=== PATIENT | female | born 1945 | race Caucasian/White ===

== ENCOUNTER 2019-12-27 13:45 | Outpatient (CLI) | payer MEDICARE, SELFPAY ==
--- NOTE | ~2019-12-27 | DEXA_ITS ---
BMD(1) Young-Adult(2) Age-Matched(3) Region (g/cm2) T-score Z-score WHO Classification L1 1.352 1.7 3.2 Normal L2 1.626 3.4 4.9 Normal L3 1.392 1.4 2.8 Normal L4 1.253 0.3 1.7 Normal L1-L4 (L2) 1.328 1.1 2.6 Normal Trend: L1-L4 (L2) Change vs Change vs Measured Age BMD(1) Baseline Previous Date (years) (g/cm2) (%) (%) 12/27/2019 74.4 1.328 22.6* 11.1* 11/24/2017 [age] 1.195 10.3* -1.9 07/29/2011 66.0 1.218 12.5* 8.4* 07/27/2009 64.0 1.124 3.8* 3.8* 07/23/2007 62.0 1.083 baseline - * - Indicates significant change based on 95% confidence interval. 1 - Statistically 68% of repeat scans fall within 1SD (+- 0.010 g/cm2 for AP Spine L1-L4 (L2)) 2 - [place] (Combined NHANES (ages 20-30) / Memorop (ages 20-40)) AP Spine Reference Population (v112) 3 - Matched for Age, Weight (females 25-100 kg), Ethnic 11 - World Health Organization - Definition of Osteoporosis and Osteopenia for Women: Normal = T-score at or above -1.0 SD; Osteopenia = T-score between -1.0 and -2.5 SD; Osteoporosis = T-score at or below -2.5 SD; (WHO definitions only apply when a young healthy Women reference database is used to determine T-scores.) Printed: 12/27/2019 2:26:44 PM (13.60)76:3.00:50.00:12.0 0.00:10.32 0.60x1.05 23.6:%Fat=40.0% 0.00:0.00 0.00:0.00 Filename: [id number] Scan Mode: Standard;OneScan 37.0 [place] [id number] BMD(1) Young-Adult(2,7) Age-Matched(3) Region (g/cm2) T-score Z-score WHO Classification Neck Left 0.761 -2.0 -0.4 Osteopenia Right 1.002 -0.3 1.4 Normal Mean 0.881 -1.1 0.5 Osteopenia Difference 0.241 1.7 1.7 - Total Left 0.863 -1.1 0.3 Osteopenia Right 0.968 -0.3 1.1 Normal Mean 0.915 -0.7 0.7 Normal Difference 0.104 0.8 0.8 - Hip [place] Length Comparison (mm) (Right = 103.7 mm) (Mean = 105.5 mm) (Left = 101.3 mm) Trend: Total Mean Change vs Change vs Measured Age BMD(1) Baseline Previous Date (years) (g/cm2) (%) (%) 12/27/2019 74.4 0.915 3.5* 5.2* 08/29/2014 69.1 0.870 -1.6 -2.4 07/29/2011 66.0 0.891 0.8 1.0 07/27/2009 64.0 0.882 -0.2 -0.2 07/23/2007 62.0 0.884 baseline - * - Indicates significant change based on 95% confidence interval. 1 - Statistically 68% of repeat scans fall within 1SD (+- 0.010 g/cm2 for DualFemur Total) 2 - [place] (Combined NHANES (ages 20-30) / Memorop (ages 20-40)) Femur Reference Population (v112) 3 - Matched for Age, Weight (females 25-100 kg), Ethnic 7 - DualFemur Total T-score difference is 0.8. Asymmetry is Mild. 11 - World Health Organization - Definition of Osteoporosis and Osteopenia for Women: Normal = T-score at or above -1.0 SD; Osteopenia = T-score between -1.0 and -2.5 SD; Osteoporosis = T-score at or below -2.5 SD; (WHO definitions only apply when a young healthy Women reference database is used to determine T-scores.) Printed: 12/27/2019 2:26:44 PM (13.60); Filename: [id number]; Right Femur; 18.6:%Fat=35.4%; Neck Angle (deg)= 57; Scan Mode: Standard 37.0 uGy; Left Femur; 18.5:%Fat=30.7%; Neck Angle (deg)= 59; Scan Mode: Standard 37.0 uGy [place] [id number] Dear Vicky Marques, Your patient Kandace Scott com
== END 2019-12-27 13:46 | disposition home or self-care (01) ==
LOC: CHSIMG 13:47
PROVIDERS: PCP Internal Medicine; Visit Provider Student in an Organized Health Care Education/Training Program
DX: Z78.0 Asymptomatic menopausal state (principal)
CPT/HCPCS: 77080

== ENCOUNTER 2020-07-20 09:58 | Outpatient (CLI) | payer MEDICARE, SELFPAY ==
--- NOTE | ~2020-07-20 | MM_ITS ---
EXAMINATION: MM screening ricki BI w bakari HISTORY: Screening mammogram TECHNIQUE: Craniocaudal and mediolateral oblique 3-D tomosynthesis images were obtained and synthetic 2-D images were generated. CAD analysis was submitted and interpreted. COMPARISON: 07/16/2019, 07/11/2018, 06/20/2017, 06/17/2016 bilateral digital screening mammogram examinat ions BREAST PARENCHYMAL COMPOSITION: There are scattered areas of fibroglandular density. FINDINGS: There is stable mild increased prominence of the fibroglandular density in the subareolar a shikha compared to the left, not significantly changed since 06/17/2016. There is no evidence of suspicio us mass, calcification, or architectural distortion to suggest malignancy in either breast. There has been no suspicious interval change. IMPRESSION: 1. No mammographic evidence of malignancy. 2. Recommend routine screening mammography in one year. BI-RADS Category 1: Negative Reviewed, dictated and finalized at location A.
== END 2020-07-20 09:59 | disposition home or self-care (01) ==
LOC: CHSIMG 09:59
PROVIDERS: PCP Internal Medicine; Visit Provider Student in an Organized Health Care Education/Training Program
DX: Z12.31 Encounter for screening mammogram for malignant neoplasm of breast (principal)
CPT/HCPCS: 77063; 77067

== ENCOUNTER 2020-10-10 10:18 | Outpatient (CLI) | payer MEDICARE, SELFPAY ==
[2020-10-10 10:45] LABS: Basophils Absolute Auto 0.02 K/mm3 (0.00-0.10); Basophils Percent Auto 0.4 % (0.0-1.0); Eosinophils Absolute Auto 0.15 K/mm3 (0.02-0.50); Eosinophils Percent Auto 3.2 % (1.0-6.0); Hemoglobin 13.5 g/dL (11.7-13.8); Immature Granulocyte Absolute 0.02 K/mm3 (0.00-0.00); Immature Granulocyte Percent A 0.4 % (0.0-0.0); Lymphocytes Absolute Auto 1.45 K/mm3 (1.10-4.50); Lymphocytes Percent Auto 30.8 % (18.0-42.0); Mean Corpuscular HGB Conc 32.1 g/dL (32.0-36.0); Mean Corpuscular Hemoglobin 31.5 pg (27.0-31.0); Mean Corpuscular Volume 97.9 fL (78.0-102.0); Mean Platelet Volume 9.9 fl (9.2-11.8); Monocytes Absolute Auto 0.45 K/mm3 (0.10-0.90); Monocytes Percent Auto 9.6 % (2.0-11.0); Neutrophils Absolute Auto 2.6 K/mm3 (1.7-7.2); Neutrophils Percent Auto 55.6 % (50.0-70.0); Platelet Count Result 223 K/mm3 (150-420); Red Blood Count 4.29 M/mm3 (4.20-5.40); Red Cell Distribution Width 12.3 % (11.6-14.4); White Blood Count 4.7 K/mm3 (4.8-10.8)
[2020-10-10 11:33] LABS: Alanine Aminotransferase 21 U/L (14-59); Albumin Level 3.8 g/dL (3.4-5.0); Alkaline Phosphatase 110 U/L (46-116); Anion Gap 11 mmol/L (8-16); Aspartate Amino Transferase 18 U/L (15-37); Bilirubin,Total 0.2 mg/dL (0.00-1.00); Blood Urea Nitrogen 19 mg/dL (7-18); Calcium 9.2 mg/dL (8.5-10.1); Carbon Dioxide 27 mmol/L (21-32); Chloride 105 mmol/L (98-108); Cholesterol 192 mg/dL (0-200); Estimated Glomerular Filt Rate 50; Glucose 105 mg/dL (70-99); HDL Direct 61 mg/dL (40-60); LDL Cholesterol Calculated 105 mg/dL (<130); Osmolality Calculated 298 mOsm/kg (285-295); Potassium 4.3 mmol/L (3.5-5.1); Sodium 143 mmol/L (136-145); Thyroid Stimulating Hormone 1.73 uIU/mL (0.36-3.74); Total Protein 6.9 g/dL (6.4-8.2); Triglycerides 131 mg/dL (0-150)
[2020-10-10 11:34] LABS: Add Urine Microscopic? NO; Appearance Urine Clear (Clear); Bilirubin Urine Negative (Negative); Blood Urine Negative (Negative); Color Urine Yellow (Yellow); Glucose Urine UA Negative (Negative); Ketones Urine Negative (Negative); Leukocyte Esterase Ur Negative (Negative); Nitrate Urine Negative (Negative); Protein Urine Negative (Negative); Specific Grav Ur 1.025 (1.010-1.020); Urobilinogen Urine 0.2 mg/dL (0.2-1.0); pH Urine 5.5 (5.0-8.0)
== END 2020-10-10 10:19 | disposition home or self-care (01) ==
LOC: CHSLAB 10:21
PROVIDERS: PCP Internal Medicine; Visit Provider Internal Medicine
DX: E03.9 Hypothyroidism, unspecified (principal); Z00.00 Encounter for general adult medical examination without abnormal findings
CPT/HCPCS: 36415; 80053; 80061; 81003; 84443; 85025

== ENCOUNTER 2020-10-19 11:17 | Outpatient (CLI) | payer MEDICARE, SELFPAY ==
[2020-10-19 12:02] LABS: SARS-CoV-2 Ag Negative (Negative)
== END 2020-10-19 11:18 | disposition home or self-care (01) ==
PROVIDERS: PCP Internal Medicine; Visit Provider Internal Medicine
DX: Z20.828 Contact with and (suspected) exposure to other viral communicable diseases (principal)
CPT/HCPCS: 87426

== ENCOUNTER 2020-10-26 11:08 | Outpatient (CLI) | payer MEDICARE, SELFPAY ==
[2020-10-26 11:52] LABS: SARS-CoV-2 Ag Positive (Negative)
== END 2020-10-26 11:09 | disposition home or self-care (01) ==
LOC: CHSLAB 11:11
PROVIDERS: PCP Internal Medicine; Visit Provider Internal Medicine
DX: U07.1 COVID-19 (principal)
CPT/HCPCS: 87426

== ENCOUNTER 2020-10-29 11:18 | Emergency (ER) | payer MEDICARE, SELFPAY ==
--- NOTE | ~2020-10-29 | XR_ITS ---
EXAMINATION: XR chest 1V portable DATE: 10/29/2020 12:30 INDICATION: COVID positive presenting with cough and weakness TECHNIQUE: frontal view of the chest was obtained. COMPARISON: Chest radiograph dated 12/19/2006 FINDINGS: The lungs are not as well-expanded as on the prior study. No focal airspace opacities, pulmonary ignacia a, pleural effusion or pneumothorax. The cardiomediastinal silhouette is normal. Mild thoracolumbar d extroscoliosis. IMPRESSION: 1. No acute cardiopulmonary disease. Reviewed, dictated and finalized at location A. [employer]
[2020-10-29 11:25] VITALS: BP 126/71; PULSE 73; RESP 15; TEMP 36.6; O2SAT 97
--- NOTE | 2020-10-29 11:34 | ED.WEAKNESS ---
HPI - Weakness General Chief complaint: Weakness Stated complaint: Weak Time Seen by Provider: 10/29/20 11:35 Source: patient Mode of arrival: ambulatory Limitations: no limitations History of Present Illness HPI Narrative: 75-year-old woman comes in today complaining of low fevers, body aches, cough and fatigue that started 4 days ago. Patient states that she has no chest pain, shortness breath, vomiting, diarrhea, rash, sore throat or difficulty swallowing or difficulty breathing. Her had COVID disease recently. She states she had the flu shot this year. She states she has been able to easily drink and eat. MD Complaint: generalized weakness Onset (ago): day(s) (4) Duration: constant and progressively worsening Location: generalized Migration: none Severity: mild Relieving factors: rest Exacerbating factors: exertion Context: recent illness Related Data Home Medications Medication Instructions Recorded Confirmed calcium carbonate 600 mg calcium 600 mg PO DAILY 12/19/19 10/29/20 (1,500 mg) tablet levothyroxine 50 mcg tablet 50 mcg PO DAILY 12/19/19 10/29/20 loratadine [Claritin] 10 mg PO DAILY 10/29/20 10/29/20 [id number] 1 tablet PO DAILY 10/29/20 10/29/20 [Centrum Silver] omeprazole magnesium [Prilosec OTC] 20 mg PO DAILY 10/29/20 10/29/20 Allergies Allergy/AdvReac Type Severity Reaction Status Date / Time cat dander Allergy Hives Verified 10/29/20 11:48 pollen extracts Allergy Hives Verified 10/29/20 11:48 Review of Systems Constitutional: Constitutional: Denies chills, Reports fatigue, Reports fever(s) and Reports weakness Eyes: Eyes: Denies change in vision and Denies photophobia ENT: Reports dysphagia, Reports nasal congestion and Reports sore throat Cardiovascular: Cardiovascular: Denies chest pain and Denies radiating jaw, neck or arm pain Respiratory: Respiratory: Reports cough, Denies dyspnea and Denies wheezing Gastrointestinal: Gastrointestinal: Denies abdominal pain, Denies nausea and Denies vomiting Musculoskeletal: Musculoskeletal: Denies arthralgias and Denies joint swelling Integumentary/Breasts: Skin/Breast: Denies pruritus, Denies erythema and Denies rash Neurologic: Denies vertigo, Denies dizziness, Denies syncope, Denies headache(s), Denies focal weakness, Denies numbness and Reports weakness Endocrine: Endocrine: Denies polydipsia and Denies polyuria Hematologic/Lymphatic: Hematologic/Lymphatic: Denies easy bleeding and Denies easy bruising Allergic/Immunologic: Allergic/Immunologic: Denies lip swelling and Denies tongue swelling PMFSH Past Medical History Medical History Anxiety Depression History of vaginal delivery x 2 Thyroid disease Surgical History Surgical History History of dilation and curettage Family History Family History Father Cerebrovascular accident, Onset Age: 92 Patient's father is Sibling Family history of diabetes mellitus in first degree relative Other Family history of malignant neoplasm of male breast Family history of malignant neoplasm of ovary Social History Social History Smoking status: Never smoker Second hand tobacco smoke exposure: No Alcohol intake: current Exam Const: General: healthy appearing, no acute distress and alert Orientation/consciousness: patient oriented x3 Limitations: no limitations HENMT: Head: normal to inspection Ears: external ears normal, TM's normal bilaterally and EAC's normal General nose exam: Normal nares present Face and sinus: normal facial exam Mouth: Yes moist mucous membranes Throat: posterior oropharynx normal Eyes: Conjunctivae: conjunctivae normal Pupils: Equal, round and reactive pupils present EOM
--- NOTE | 2020-10-29 11:41 | ECG_ITS ---
Measurements Intervals [place] Rate: 68 P: 55 [place]: 134 QRS: 69 QRSD: 84 T: 56 QT: 405 QTc: 432 Interpretive Statements SINUS RHYTHM BASELINE ARTIFACT- II, III, AVL, AVF NORMAL ECG Electronically Signed On 10-29-2020 16:46:25 [employer] by Marlo Higgins D.O.
[2020-10-29 12:23] LABS: Basophils Absolute Auto 0.02 K/mm3 (0.00-0.10); Basophils Percent Auto 0.4 % (0.0-1.0); Hemoglobin 12.6 g/dL (11.7-13.8); Immature Granulocyte Absolute 0.02 K/mm3 (0.00-0.00); Immature Granulocyte Percent A 0.4 % (0.0-0.0); Lymphocytes Absolute Auto 1.16 K/mm3 (1.10-4.50); Mean Corpuscular HGB Conc 33.2 g/dL (32.0-36.0); Mean Corpuscular Hemoglobin 31.2 pg (27.0-31.0); Mean Corpuscular Volume 94.1 fL (78.0-102.0); Mean Platelet Volume 9.9 fl (9.2-11.8); Monocytes Absolute Auto 0.51 K/mm3 (0.10-0.90); Monocytes Percent Auto 11.4 % (2.0-11.0); Neutrophils Absolute Auto 2.8 K/mm3 (1.7-7.2); Neutrophils Percent Auto 61.8 % (50.0-70.0); Platelet Count Result 176 K/mm3 (150-420); Red Blood Count 4.04 M/mm3 (4.20-5.40); Red Cell Distribution Width 12.5 % (11.6-14.4); White Blood Count 4.5 K/mm3 (4.8-10.8)
[2020-10-29 12:37] LABS: INR 0.9; Partial Thromboplastin Time 29.3 SEC (23.90-30.70); Prothrombin Time 10.5 Seconds (9.50-12.10)
[2020-10-29 12:47] LABS: Alanine Aminotransferase 23 U/L (14-59); Albumin Level 3.3 g/dL (3.4-5.0); Alkaline Phosphatase 63 U/L (46-116); Anion Gap 9 mmol/L (8-16); Aspartate Amino Transferase 26 U/L (15-37); Bilirubin,Total 0.3 mg/dL (0.00-1.00); Blood Urea Nitrogen 13 mg/dL (7-18); CRP 4.3 mg/dL (0.0-0.9); Calcium 8.6 mg/dL (8.5-10.1); Carbon Dioxide 25 mmol/L (21-32); Chloride 100 mmol/L (98-108); Estimated Glomerular Filt Rate 48; Glucose 124 mg/dL (70-99); Osmolality Calculated 279 mOsm/kg (285-295); Potassium 3.7 mmol/L (3.5-5.1); Sodium 134 mmol/L (136-145); Total Protein 6.9 g/dL (6.4-8.2)
[2020-10-29 13:22] LABS: Appearance Urine Clear (Clear); Bilirubin Urine Negative (Negative); Color Urine Yellow (Yellow); Glucose Urine UA Negative (Negative); Ketones Urine Negative (Negative); Leukocyte Esterase Ur Negative LEU/UL (Negative); Nitrate Urine Negative (Negative); Protein Urine Negative (Negative); Specific Grav Ur <= 1.005 (1.010-1.020); Urobilinogen Urine 0.2 mg/dL (0.2-1.0); pH Urine 6.5 (5.0-8.0)
[2020-10-29 13:29] LABS: Add Urine Microscopic? YES; Bacteria Urine Trace /hpf; Blood Urine Trace-lysed (Negative); RBC Urine None seen /hpf (0-2); Squamous Epithelial Cell Urine Rare /hpf (Few); WBC Urine None seen /hpf (0-3)
[2020-10-29 13:45] VITALS: BP 105/59; PULSE 62
== END 2020-10-29 13:49 | disposition home or self-care (01) ==
PROVIDERS: Emergency Provider Emergency Medicine; PCP Internal Medicine
DX: U07.1 COVID-19 (principal); R53.1 Weakness
CPT/HCPCS: 36415; 71045; 80053; 81001; 83605; 85025; 85610; 85730; 86140; 87040; 93005; 99283

== ENCOUNTER 2021-04-12 07:52 | Outpatient (CLI) | payer MEDICARE, SELFPAY ==
--- NOTE | ~2021-04-12 | US_ITS ---
EXAMINATION: US right upper quadrant EXAM DATE: 04/12/2021 09:02 INDICATION: Elevated liver enzymes. TECHNIQUE: Multiple grayscale and Doppler images of the abdomen right upper quadrant were obtained (solomon y a technologist who performed the scan) and subsequently reviewed. There is no prior study for madhavi leung. FINDINGS: The pancreatic head and body are normal in appearance. The pancreatic tail is not visualized. The l iver has normal echogenicity and contour. There are no focal liver lesions identified. There is no evidence of intrahepatic biliary duct dilation. Portal venous flow was seen in the hepatopedal, nor mal direction and has normal Doppler waveform. No right-sided hydronephrosis. Common bile duct measures 4 mm, which is normal. The gallbladder wall is normal in thickness, with ex pected amount of distention. No sonographic evidence of pericholecystic fluid. There is cholelithia sis. Technologist performing exam reports patient did not demonstrate sonographic Souza's sign. P kal note that this sign is less reliable in patients who have received pain medication. IMPRESSION: 1. Cholelithiasis. Reviewed, dictated and finalized at location B. IMPRESSION: 1. Cholelithiasis.
== END 2021-04-12 07:53 | disposition home or self-care (01) ==
LOC: CHSIMG 07:54
PROVIDERS: PCP Internal Medicine; Visit Provider Internal Medicine
DX: R94.5 Abnormal results of liver function studies (principal)
CPT/HCPCS: 76705

== ENCOUNTER 2021-05-21 09:47 | Outpatient (CLI) | payer MEDICARE, SELFPAY ==
[2021-05-21 10:37] LABS: Alanine Aminotransferase 21 U/L (14-59); Albumin Level 3.9 g/dL (3.4-5.0); Alkaline Phosphatase 74 U/L (46-116); Anion Gap 10 mmol/L (8-16); Aspartate Amino Transferase 20 U/L (15-37); Bilirubin,Total 0.4 mg/dL (0.00-1.00); Blood Urea Nitrogen 17 mg/dL (7-18); Calcium 9.1 mg/dL (8.5-10.1); Carbon Dioxide 27 mmol/L (21-32); Chloride 106 mmol/L (98-108); Estimated Glomerular Filt Rate 56; Glucose 100 mg/dL (70-99); Osmolality Calculated 297 mOsm/kg (285-295); Potassium 4.2 mmol/L (3.5-5.1); Sodium 143 mmol/L (136-145); Total Protein 6.6 g/dL (6.4-8.2)
== END 2021-05-21 09:48 | disposition home or self-care (01) ==
LOC: CHSLAB 09:48
PROVIDERS: PCP Internal Medicine; Visit Provider Internal Medicine
DX: R94.5 Abnormal results of liver function studies (principal)
CPT/HCPCS: 36415; 80053

== ENCOUNTER 2021-07-21 09:30 | Outpatient (CLI) | payer MEDICARE, SELFPAY ==
--- NOTE | ~2021-07-21 | MM_ITS ---
EXAMINATION: MM screening ricki BI w bakari HISTORY: Screening mammogram TECHNIQUE: Craniocaudal and mediolateral oblique 3-D tomosynthesis images were obtained and synthetic 2-D images were generated. CAD analysis was submitted and interpreted. COMPARISON: 07/20/2020, 07/16/2019, 07/11/2018 bilateral digital screening mammogram examinations BREAST PARENCHYMAL COMPOSITION: There are scattered areas of fibroglandular density. FINDINGS: There is no evidence of suspicious mass, calcification, or architectural distortion to sugg est malignancy in either breast. There has been no suspicious interval change. IMPRESSION: 1. No mammographic evidence of malignancy. 2. Recommend routine screening mammography in one year. BI-RADS Category 1: Negative Reviewed, dictated and finalized at location A.
== END 2021-07-21 09:31 | disposition home or self-care (01) ==
LOC: CHSIMG 09:31
PROVIDERS: PCP Internal Medicine; Visit Provider Student in an Organized Health Care Education/Training Program
DX: Z12.31 Encounter for screening mammogram for malignant neoplasm of breast (principal)
CPT/HCPCS: 77063; 77067

== ENCOUNTER 2021-10-05 10:04 | Outpatient (CLI) | payer MEDICARE, SELFPAY ==
[2021-10-05 10:18] LABS: Basophils Absolute Auto 0.04 K/mm3 (0.00-0.10); Basophils Percent Auto 0.9 % (0.0-1.0); Eosinophils Absolute Auto 0.16 K/mm3 (0.02-0.50); Eosinophils Percent Auto 3.7 % (1.0-6.0); Hematocrit 42.4 % (35.0-42.0); Hemoglobin 14.5 g/dL (11.7-13.8); Immature Granulocyte Absolute 0.01 K/mm3 (0.00-0.00); Immature Granulocyte Percent A 0.2 % (0.0-0.0); Lymphocytes Absolute Auto 1.79 K/mm3 (1.10-4.50); Lymphocytes Percent Auto 41.4 % (18.0-42.0); Mean Corpuscular HGB Conc 34.2 g/dL (32.0-36.0); Mean Corpuscular Hemoglobin 32.6 pg (27.0-31.0); Mean Corpuscular Volume 95.3 fL (78.0-102.0); Mean Platelet Volume 9.5 fl (9.2-11.8); Monocytes Percent Auto 11.6 % (2.0-11.0); Neutrophils Absolute Auto 1.8 K/mm3 (1.7-7.2); Neutrophils Percent Auto 42.2 % (50.0-70.0); Platelet Count Result 258 K/mm3 (150-420); Red Blood Count 4.45 M/mm3 (4.20-5.40); Red Cell Distribution Width 12.1 % (11.6-14.4); White Blood Count 4.3 K/mm3 (4.8-10.8)
[2021-10-05 11:44] LABS: Alanine Aminotransferase 22 U/L (14-59); Alkaline Phosphatase 74 U/L (46-116); Anion Gap 12 mmol/L (8-16); Aspartate Amino Transferase 20 U/L (15-37); Bilirubin,Total 0.4 mg/dL (0.00-1.00); Blood Urea Nitrogen 21 mg/dL (7-18); Calcium 9.4 mg/dL (8.5-10.1); Carbon Dioxide 27 mmol/L (21-32); Chloride 103 mmol/L (98-108); Cholesterol 231 mg/dL (0-200); Estimated Glomerular Filt Rate 52; Glucose 96 mg/dL (70-99); HDL Direct 60 mg/dL (40-60); LDL Cholesterol Calculated 147 mg/dL (<130); Osmolality Calculated 297 mOsm/kg (285-295); Potassium 4.7 mmol/L (3.5-5.1); Sodium 142 mmol/L (136-145); Thyroid Stimulating Hormone 1.65 uIU/mL (0.36-3.74); Total Protein 7.1 g/dL (6.4-8.2); Triglycerides 120 mg/dL (0-150)
== END 2021-10-05 10:05 | disposition home or self-care (01) ==
LOC: CHSLAB 10:09
PROVIDERS: PCP Internal Medicine; Visit Provider Internal Medicine
DX: E03.9 Hypothyroidism, unspecified (principal); E78.5 Hyperlipidemia, unspecified
CPT/HCPCS: 36415; 80053; 80061; 84443; 85025

== ENCOUNTER 2021-10-19 16:05 | Outpatient (CLI) | payer MEDICARE, SELFPAY | END 2021-10-19 16:06 | disposition home or self-care (01) | PROVIDERS: Visit Provider Specialist | DX: L81.4 Other melanin hyperpigmentation (principal) | CPT/HCPCS: 88305 ==

== ENCOUNTER 2022-02-02 13:39 | Outpatient (CLI) | payer MEDICARE, SELFPAY ==
--- NOTE | ~2022-02-02 | XR_ITS ---
EXAM: XR lumbar spine 2-3V HISTORY: RIGHT FLANK PAIN X1MO COMPARISON: 05/17/2018. FINDINGS: Lumbar scoliosis. Multilevel disc space narrowing and marginal osteophytosis, severe at L1 -2, L2-3, and L5-S1. Overall there is been slight interval progression in the severity of the degener ative disc disease. Multilevel facet arthropathy and interspinous narrowing. Grade 1 retrolisthesis o f L1 on L2. No lytic or blastic lesion. No fracture or malalignment. IMPRESSION: No acute osseous abdomen out. Multilevel degenerative disc disease and facet arthropathy. Reviewed, dictated and finalized at location K. IMPRESSION: No acute osseous abdomen out. Multilevel degenerative disc disease and facet ar thropathy.
[2022-02-02 13:49] LABS: Basophils Absolute Auto 0.04 K/mm3 (0.00-0.10); Basophils Percent Auto 0.9 % (0.0-1.0); Eosinophils Percent Auto 2.2 % (1.0-6.0); Hematocrit 40.3 % (35.0-42.0); Hemoglobin 13.4 g/dL (11.7-13.8); Immature Granulocyte Absolute 0.01 K/mm3 (0.00-0.00); Immature Granulocyte Percent A 0.2 % (0.0-0.0); Lymphocytes Absolute Auto 1.81 K/mm3 (1.10-4.50); Lymphocytes Percent Auto 40.6 % (18.0-42.0); Mean Corpuscular HGB Conc 33.3 g/dL (32.0-36.0); Mean Corpuscular Hemoglobin 31.9 pg (27.0-31.0); Mean Platelet Volume 9.6 fl (9.2-11.8); Monocytes Absolute Auto 0.51 K/mm3 (0.10-0.90); Monocytes Percent Auto 11.4 % (2.0-11.0); Neutrophils Percent Auto 44.7 % (50.0-70.0); Platelet Count Result 216 K/mm3 (150-420); Red Cell Distribution Width 12.3 % (11.6-14.4); White Blood Count 4.5 K/mm3 (4.8-10.8)
[2022-02-02 13:53] LABS: Add Urine Microscopic? NO; Appearance Urine Clear (Clear); Bilirubin Urine Negative (Negative); Blood Urine Negative (Negative); Color Urine Yellow (Yellow); Glucose Urine UA Negative (Negative); Ketones Urine Negative (Negative); Leukocyte Esterase Ur Negative (Negative); Nitrate Urine Negative (Negative); Protein Urine Negative (Negative); Specific Grav Ur 1.025 (1.010-1.020); Urobilinogen Urine 0.2 mg/dL (0.2-1.0)
[2022-02-02 14:28] LABS: Alanine Aminotransferase 21 U/L (14-59); Alkaline Phosphatase 67 U/L (46-116); Anion Gap 5 mmol/L (8-16); Aspartate Amino Transferase 21 U/L (15-37); Bilirubin,Total 0.3 mg/dL (0.00-1.00); Blood Urea Nitrogen 14 mg/dL (7-18); Calcium 9.3 mg/dL (8.5-10.1); Carbon Dioxide 30 mmol/L (21-32); Chloride 104 mmol/L (98-108); Estimated Glomerular Filt Rate 58; Glucose 90 mg/dL (70-99); Osmolality Calculated 288 mOsm/kg (285-295); Potassium 4.4 mmol/L (3.5-5.1); Sodium 139 mmol/L (136-145); Total Protein 6.6 g/dL (6.4-8.2)
== END 2022-02-02 13:40 | disposition home or self-care (01) ==
LOC: CHSLAB 13:41
PROVIDERS: PCP Internal Medicine; Visit Provider Internal Medicine
DX: R10.9 Unspecified abdominal pain (principal)
CPT/HCPCS: 36415; 72100; 80053; 81003; 85025

== ENCOUNTER 2022-02-14 13:56 | Outpatient (RCR) | payer MEDICARE, SELFPAY ==
--- NOTE | 2022-02-14 14:56 | PTOPEVAL ---
Thank you for referring Kandace Scott to [facility].? The patient is scheduled to be seen for therapy? __1__x/week for 6 visits. Please review, sign, date and return this plan of care MARIA ISABEL. I agree with and certify that the following plan of care is medically necessary. Referring Physician Date Admitting Provider: Attending Provider: Inocencio Briggs MD Referring Provider: *PT Outpatient Evaluation Start: 02/14/22 14:05 Freq: Status: Active Protocol: Document 02/14/22 14:05 RADHA (Rec: 02/14/22 14:55 RADHA [email or web address]) Therapy Assessment Status Assessment Status Assessment Status Evaluation Outpatient Past Medical History Musculoskeletal History Hx Osteoporosis Yes Endocrine History Hx Hypothyroidism Yes Psychosocial History Hx Anxiety Yes Hx Depression Yes Evaluation Information Problem Diagnosis low back pain Onset 12/17/21 Subjective Information Pt. reports that she developed Query Text:As Reported By Patient/ back pain a couple months ago Family . She reports that she went to the doctor and did recieve a dose pack which has helped to decrease her pain. She reports that her pain is no longer constant, but will come and go based upon her activity. She describes no complication with sleeping at night. She describe most pain with doing activity that requires her to bend frequently. She reports that she is currently walking daily for at least 1 mile. She reports that when she does get pain it is located on the right side described at the hip bone. She reports that her goal is to develop exercise to prevent any further pain. Prior Level of Function Activity Level (Last 3 Months) Occupation retired Hand Dominance Right Activity of Daily Living Ability Independent Indoor/Home Mobility Independent Community Mobility Independent Stairs Ability Independent Functional Cognition (Planning, Shopping Independent , Taking Medications) Cooking Yes Cleaning Yes
== END 2022-03-07 16:19 | disposition home or self-care (01) ==
LOC: CHSPT 13:56
PROVIDERS: PCP Internal Medicine; Visit Provider Internal Medicine
DX: M54.50 Low back pain, unspecified (principal)
CPT/HCPCS: 97110; 97161

== ENCOUNTER 2022-07-25 13:00 | Outpatient (CLI) | payer MEDICARE, SELFPAY ==
--- NOTE | ~2022-07-25 | MM_ITS ---
EXAMINATION: MM screening ricki BI w bakari HISTORY: Screening mammogram TECHNIQUE: Craniocaudal and mediolateral oblique 3-D tomosynthesis images were obtained and synthetic 2-D images were generated. CAD analysis was submitted and interpreted. COMPARISON: 07/21/2021, 07/20/2020, 07/16/2019 bilateral screening mammogram examinations BREAST PARENCHYMAL COMPOSITION: There are scattered areas of fibroglandular density. FINDINGS: There is no evidence of suspicious mass, calcification, or architectural distortion to sugg est malignancy in either breast. There has been no suspicious interval change. IMPRESSION: 1. No mammographic evidence of malignancy. 2. Recommend routine screening mammography in one year. BI-RADS Category 1: Negative Reviewed, dictated and finalized at location A.
== END 2022-07-25 13:01 | disposition home or self-care (01) ==
PROVIDERS: PCP Internal Medicine; Visit Provider Student in an Organized Health Care Education/Training Program
DX: Z12.31 Encounter for screening mammogram for malignant neoplasm of breast (principal)
CPT/HCPCS: 77063; 77067

== ENCOUNTER 2022-07-29 12:41 | Outpatient (CLI) | payer MEDICARE, SELFPAY ==
--- NOTE | ~2022-07-29 | DEXA_ITS ---
Bone Density Report Name: NAVDEEP RASMUSSEN Age: 77 Sex: Female Ethnicity: White Date of : 1945 Indication: postmenopausal; screening for osteoporosis; height loss; Referring Provider: Vicky Marques Study: Bone densitometry was performed. Exam Date: July 29, 2022 Accession number: [id number] Bone Density: Region BMD T-score Z-score Classification AP Spine(L2, L3, L4) 1.213 1.2 3.7 Normal Femoral Neck (Left) 0.608 -2.2 -0.1 Osteopenia Total Hip (Left) 0.754 -1.5 0.2 Osteopenia Femoral Neck (Right) 0.913 0.6 2.7 Normal Total Hip (Right) 0.848 -0.8 1.0 Normal Femoral Neck Mean 0.760 -0.8 1.3 Normal Total Hip Mean 0.801 -1.2 0.6 Osteopenia World Health Organization criteria for BMD impression classify patients as: Normal (T-score at or above -1.0), Osteopenia (T-score between -1.0 and -2.5), or Osteoporosis (T-score at or below -2.5). 10-year Fracture Risk(1): Major Osteoporotic Fracture 14% Hip Fracture 3.8% Reported Risk Factors: [place] (), Neck BMD=0.608, BMI=26.1 (1) FRAX(R) Version 3.08. Fracture probability calculated for an untreated patient. Fracture probability may be lower if the patient has received treatment. Clinical Information Provided by Patient: Has used the following medications: Boniva (i.e. ibandronate), Vitamin D, Calcium, multi vit Patient maximum height was 68 Menopause Age: 57 No regular weight bearing exercise Drinks caffeinated beverages Onset of menses at age 15 Number of children 2 Impression: The patient has low bone mass, based on the Left Femoral Neck T-score. Discussion: BONE DENSITY IS LOW AT ONE OR MORE SKELETAL SITES. This patient's lowest T-score is low at one or more skeletal sites. It meets the World Health Organization's (WHO) criteria for ?low bone mass? (T-score between -1.0 and -2.5). The patient's 10-year risk of fracture as calculated by FRAX is less than the threshold where pharmacological therapy is recommended by the National Osteoporosis Foundation (NOF). However, all treatment decisions require clinical judgment and consideration of individual patient factors, including patient preferences, comorbidities, previous drug use, risk factors not captured in the FRAX model (e.g., frailty, falls, vitamin D deficiency, increased bone turnover, interval significant decline in bone density) and possible under or overestimation of fracture risk by FRAX. The patient should follow a healthful lifestyle (good nutrition with adequate calcium and vitamin D, and appropriate weight-bearing exercise). Follow-Up: Consider repeating this study in 2 to 3 years to reassess this patient's status, or sooner if there is some new clinical indication. Reported by: Dr. Farhat Amos on 07/29/2022 1:04:00 PM. _
== END 2022-07-29 12:42 | disposition home or self-care (01) ==
LOC: CHSIMG 12:44
PROVIDERS: PCP Internal Medicine; Visit Provider Student in an Organized Health Care Education/Training Program
DX: Z78.0 Asymptomatic menopausal state (principal)
CPT/HCPCS: 77080

== ENCOUNTER 2022-11-18 09:08 | Outpatient (CLI) | payer MEDICARE, SELFPAY ==
[2022-11-18 09:42] LABS: Basophils Absolute Auto 0.03 K/mm3 (0.00-0.10); Basophils Percent Auto 0.7 % (0.0-1.0); Eosinophils Absolute Auto 0.11 K/mm3 (0.02-0.50); Eosinophils Percent Auto 2.4 % (1.0-6.0); Hematocrit 42.9 % (35.0-42.0); Hemoglobin 14.1 g/dL (11.7-13.8); Immature Granulocyte Absolute 0.01 K/mm3 (0.00-0.00); Immature Granulocyte Percent A 0.2 % (0.0-0.0); Lymphocytes Absolute Auto 1.72 K/mm3 (1.10-4.50); Lymphocytes Percent Auto 38.3 % (18.0-42.0); Mean Corpuscular HGB Conc 32.9 g/dL (32.0-36.0); Mean Corpuscular Hemoglobin 31.6 pg (27.0-31.0); Mean Corpuscular Volume 96.2 fL (78.0-102.0); Mean Platelet Volume 9.4 fl (9.2-11.8); Monocytes Absolute Auto 0.57 K/mm3 (0.10-0.90); Monocytes Percent Auto 12.7 % (2.0-11.0); Neutrophils Absolute Auto 2.1 K/mm3 (1.7-7.2); Neutrophils Percent Auto 45.7 % (50.0-70.0); Platelet Count Result 221 K/mm3 (150-420); Red Blood Count 4.46 M/mm3 (4.20-5.40); Red Cell Distribution Width 11.9 % (11.6-14.4); White Blood Count 4.5 K/mm3 (4.8-10.8)
[2022-11-18 09:51] LABS: Add Urine Microscopic? NO; Appearance Urine Clear (Clear); Bilirubin Urine Negative (Negative); Blood Urine Negative (Negative); Color Urine Yellow (Yellow); Glucose Urine UA Negative (Negative); Ketones Urine Negative (Negative); Leukocyte Esterase Ur Negative LEU/UL (Negative); Nitrate Urine Negative (Negative); Protein Urine Negative (Negative); Specific Grav Ur 1.025 (1.010-1.020); Urobilinogen Urine 0.2 mg/dL (0.2-1.0)
[2022-11-18 10:31] LABS: Alanine Aminotransferase 24 U/L (14-59); Albumin Level 3.9 g/dL (3.4-5.0); Alkaline Phosphatase 66 U/L (46-116); Anion Gap 7 mmol/L (8-16); Aspartate Amino Transferase 28 U/L (15-37); Bilirubin,Total 0.4 mg/dL (0.00-1.00); Blood Urea Nitrogen 18 mg/dL (7-18); Calcium 9.2 mg/dL (8.5-10.1); Carbon Dioxide 30 mmol/L (21-32); Chloride 106 mmol/L (98-108); Cholesterol 221 mg/dL (0-200); Estimated Glomerular Filt Rate 51; Free T3 2.53 pg/mL (2.18-3.98); Free T4 Free Thyroxine 0.92 ng/dL (0.76-1.46); Glucose 95 mg/dL (70-99); HDL Direct 59 mg/dL (40-60); LDL Cholesterol Calculated 138 mg/dL (<130); Osmolality Calculated 297 mOsm/kg (285-295); Potassium 4.6 mmol/L (3.5-5.1); Sodium 143 mmol/L (136-145); Thyroid Stimulating Hormone 1.44 uIU/mL (0.36-3.74); Total Protein 6.9 g/dL (6.4-8.2); Triglycerides 120 mg/dL (0-150)
== END 2022-11-18 09:09 | disposition home or self-care (01) ==
PROVIDERS: PCP Internal Medicine; Visit Provider Internal Medicine
DX: E03.9 Hypothyroidism, unspecified (principal); R94.5 Abnormal results of liver function studies; N39.0 Urinary tract infection, site not specified; E78.5 Hyperlipidemia, unspecified
CPT/HCPCS: 36415; 80053; 80061; 81003; 84439; 84443; 84481; 85025

== ENCOUNTER 2023-08-03 13:04 | Outpatient (CLI) | payer MEDICARE, SELFPAY ==
--- NOTE | ~2023-08-03 | MM_ITS ---
EXAMINATION: MM screening [facility] BI w bakari HISTORY: Screening mammogram TECHNIQUE: Craniocaudal and mediolateral oblique 3-D tomosynthesis images were obtained and synthetic 2-D images were generated. CAD analysis was submitted and interpreted. COMPARISON: 07/25/2022, 07/21/2021, 07/20/2020 BREAST PARENCHYMAL COMPOSITION: There are scattered areas of fibroglandular density. FINDINGS: There is chronic focal asymmetry in the subareolar aspect of the left breast. No suspicious mass, calcification, or architectural distortion are identified in either breast to suggest malignan cy. There has been no suspicious interval change. IMPRESSION: 1. No mammographic evidence of malignancy. 2. Recommend routine screening mammography in one year. BI-RADS Category 2: Benign finding(s). Reviewed, dictated and finalized at location A.
[2023-08-03] MEDS: DENOSUMAB 60 MG/ML SYRINGE SUB-Q (13:36)
== END 2023-08-03 13:05 | disposition home or self-care (01) ==
LOC: CHSIMG 13:07 → CHSTREATRM 13:24
PROVIDERS: PCP Internal Medicine; Visit Provider Obstetrics & Gynecology
DX: M81.0 Age-related osteoporosis without current pathological fracture (principal); Z92.29 Personal history of other drug therapy; Z12.31 Encounter for screening mammogram for malignant neoplasm of breast
CPT/HCPCS: 77063; 77067; 96372; J0897

== ENCOUNTER 2024-01-10 10:16 | Outpatient (CLI) | payer MEDICARE, SELFPAY ==
--- NOTE | ~2024-01-10 | XR_ITS ---
EXAMINATION: XR lumbar spine 2-3V DATE: 01/10/2024 10:48 INDICATION: Chronic back pain. TECHNIQUE: 3 views of lumbar spine were obtained. COMPARISON: Lumbar spine radiograph 02/02/2022 FINDINGS: There is 19 degrees levoscoliosis of thoracolumbar spine. There is mild chronic anterior we dging of T11-L2 vertebral bodies. There is severely decreased disc height at T12-L1, L1-L2, and L2-L3 , moderately decreased disc height at L3-L4, and severely decreased disc height at L4-L5 and L5-S1. T here is multilevel severe facet joint osteoarthritis. IMPRESSION: 1. Severe lumbar spondylosis. 2. Thoracolumbar levoscoliosis. Reviewed, dictated and finalized at location A.
[2024-01-10 10:37] LABS: Basophils Absolute Auto 0.04 K/mm3 (0.00-0.10); Basophils Percent Auto 0.8 % (0.0-1.0); Eosinophils Absolute Auto 0.13 K/mm3 (0.02-0.50); Eosinophils Percent Auto 2.8 % (1.0-6.0); Hematocrit 43.9 % (35.0-42.0); Hemoglobin 14.5 g/dL (11.7-13.8); Immature Granulocyte Absolute 0.01 K/mm3 (0.00-0.00); Immature Granulocyte Percent A 0.2 % (0.0-0.0); Lymphocytes Absolute Auto 2.08 K/mm3 (1.10-4.50); Lymphocytes Percent Auto 44.1 % (18.0-42.0); Mean Corpuscular Hemoglobin 30.8 pg (27.0-31.0); Mean Corpuscular Volume 93.2 fL (78.0-102.0); Mean Platelet Volume 9.4 fl (9.2-11.8); Monocytes Absolute Auto 0.54 K/mm3 (0.10-0.90); Monocytes Percent Auto 11.4 % (2.0-11.0); Neutrophils Absolute Auto 1.92 K/mm3 (1.70-7.20); Neutrophils Percent Auto 40.7 % (50.0-70.0); Platelet Count Result 247 K/mm3 (150-420); Red Blood Count 4.71 M/mm3 (4.20-5.40); White Blood Count 4.7 K/mm3 (4.8-10.8)
[2024-01-10 11:35] LABS: Alanine Aminotransferase 22 U/L (14-59); Albumin Level 4.2 g/dL (3.4-5.0); Alkaline Phosphatase 49 U/L (46-116); Anion Gap 12 mmol/L (8-16); Aspartate Amino Transferase 21 U/L (15-37); Bilirubin,Total 0.5 mg/dL (0.00-1.00); Blood Urea Nitrogen 19 mg/dL (7-18); Calcium 9.2 mg/dL (8.5-10.1); Carbon Dioxide 26 mmol/L (21-32); Chloride 104 mmol/L (98-108); Cholesterol 220 mg/dL (0-200); Estimated Glomerular Filt Rate 52; Free T3 2.53 pg/mL (2.18-3.98); Free T4 Free Thyroxine 1.04 ng/dL (0.76-1.46); Glucose 106 mg/dL (70-99); HDL Direct 65 mg/dL (40-60); LDL Cholesterol Calculated 127 mg/dL (<130); Osmolality Calculated 296 mOsm/kg (285-295); Potassium 4.6 mmol/L (3.5-5.1); Sodium 142 mmol/L (136-145); Thyroid Stimulating Hormone 2.02 uIU/mL (0.36-3.74); Total Protein 7.1 g/dL (6.4-8.2); Triglycerides 138 mg/dL (0-150)
[2024-01-10 11:37] LABS: CRP < 0.5 mg/dL (0.0-0.9)
[2024-01-10 13:18] LABS: Appearance Urine Clear (Clear); Bilirubin Urine 1+ (Negative); Blood Urine Negative (Negative); Color Urine Dark Yellow (Yellow); Glucose Urine UA Negative (Negative); Ketones Urine Negative (Negative); Leukocyte Esterase Ur Negative (Negative); Nitrate Urine Negative (Negative); Protein Urine Negative (Negative); Specific Grav Ur >= 1.030 (1.010-1.020); Urobilinogen Urine 0.2 mg/dL (0.2-1.0)
[2024-01-10 13:24] LABS: Add Urine Microscopic? YES; Bacteria Urine Trace /hpf; Mucus Urine Moderate /lpf; RBC Urine None seen /hpf (0-2); Squamous Epithelial Cell Urine Rare /hpf (Few); WBC Urine None seen /hpf (0-3)
== END 2024-01-10 10:17 | disposition home or self-care (01) ==
PROVIDERS: PCP Internal Medicine; Visit Provider Internal Medicine
DX: R00.2 Palpitations (principal); M54.50 Low back pain, unspecified; M43.06 Spondylolysis, lumbar region; M41.85 Other forms of scoliosis, thoracolumbar region; E78.5 Hyperlipidemia, unspecified
CPT/HCPCS: 36415; 72100; 80053; 80061; 81001; 84439; 84443; 84481; 85025; 86140

== ENCOUNTER 2024-01-11 15:09 | Outpatient (CLI) | payer MEDICARE, SELFPAY ==
[2024-01-17 10:13] LABS: Reference Lab Test Name FLOW CYTOMETRY
== END 2024-01-11 15:10 | disposition home or self-care (01) ==
LOC: CHSLAB 15:14
PROVIDERS: PCP Internal Medicine; Visit Provider Internal Medicine
DX: D72.819 Decreased white blood cell count, unspecified (principal); D72.820 Lymphocytosis (symptomatic)
CPT/HCPCS: 36415; 88184; 88185

== ENCOUNTER 2024-01-15 11:14 | Outpatient (CLI) | payer MEDICARE, SELFPAY ==
--- NOTE | 2024-02-12 11:27 | WPDHOLTEREM ---
Holter/Event Monitor Holter/Event Monitor Date of procedure: 01/15/24 Holter/Event Procedure: Event Monitor Indications: Palpitations Conclusion: 1. 25 days event monitor between 01/15/24-02/12/24. There are 17 available transmissions for analysis. 2. Underlying rhythm is sinus rhythm. HR range 50-164 bpm; average 71 bpm. 3. There are occasional premature supraventricular complexes with total burden of 1%. No supraventricular tachycardia. 4. There are occasional premature ventricular complexes with total burden of 1%. No ventricular tachycardia. 5. No sinoatrial or atrioventricular blocks. No significant pauses greater than 2 seconds. 6. Patient reports 4 episodes of symptoms of heart racing and symptoms other than listed which demonstrate sinus rhythm, HR range 66-164 bpm.
== END 2024-01-15 11:15 | disposition home or self-care (01) ==
LOC: CHSCARD 11:15
PROVIDERS: PCP Internal Medicine; Visit Provider Internal Medicine
DX: R00.2 Palpitations (principal); M54.50 Low back pain, unspecified
CPT/HCPCS: 93270

== ENCOUNTER 2024-01-17 14:23 | Outpatient (RCR) | payer MEDICARE, SELFPAY ==
--- NOTE | 2024-01-17 15:16 | OPREHPOC ---
Outpatient Therapy Plan of Care This is a Multidisciplinary Plan of Care that may contain components documented by all disciplines (PT, OT, and ST.) PT Problem 1 PT Problem #1 Knowledge Deficit PT Goal 1 Goal 1. independent and compliant with HEP Target Visit 4 PT Problem 2 PT Problem #2 Pain PT Goal 1 Goal 1. decrease pain at worst to 3/10 or less to improve quality of life and return to prior level activities. Target Visit 8 PT Problem 3 PT Problem #3 Impaired Range of Motion PT Goal 1 Goal 1. full active lumbar flexion without pain Target Visit 8 PT Problem 4 PT Problem #4 Impaired Strength PT Goal 1 Goal 1. improve bilateral hip strength to 4+/5 or better overall 2. improve knee strength to 5/5 overall Target Visit 8 PT Problem 5 PT Problem #5 Impaired Functional Mobil PT Goal 1 Goal 1. oswestry to display less than 10% functional deficits 2. patient to ambulate 10 minutes in therapy without rest without increased pain 3. patient to perform home cleaning and care tasks for 2 hour bouts without increased pain Target Visit 8
--- NOTE | 2024-01-17 15:16 | PTOPEVAL1 ---
Assessment and note entered by JT File, PT Evaluation Information Assessment Status Evaluation Diagnosis low back pain Onset 11/18/23 Subjective Information patient reports she has been having increased pain in the lower back for about 2 months. she reports the pain starts in the tailbone and goes down the R LE. she reports the symptoms come and go. she reports she will notice increased symptoms when she bends over forward. she reports she just finished a round of oral steroids, but she has not seen much improvement. she reports she has increased symptoms with sitting on a hard chair, and with prolonged sitting, standing, bending/ lifting activities. she reports she does not have any numbness, burning, or tingling in the R LE. Reported Pain Level Pain Score 3: Self Report Assessment PT Clinical Summary mrs. arce is a pleasant 78 yo woman who presents to skilled PT services for evaluation and treatment of acute on chronic lower back pain. she displays pain in the R lower back drawing down the R LE. she displays core weakness, hip weakness , and special tests indicating a possible discoid injury. continued skilled PT is indicated to improve patient's objective/functional performance to allow her to return to her prior level functional activities and quality of life. Plan of Care Interventions Electrical Stimulation,Hot Pack/Cold Pack,Manual Therapy,Neuro Re-education,Patient/Caregiver Educati,Therapeutic Activities,Therapeutic Exercise PT Services Indicated Yes Treatment Frequency and 2x weekly for 8 visits Duration These treatments will address the objective and functional deficits as defined above. The patient will be advanced safely and appropriately in order for the patient to progress towards his/her prior level of function. Additional exercises will be introduced and as well as a comprehensive home exercise program upon discharge, if needed, ?to ensure carryover of functional gains achieved in the clinic. This treatment plan has been reviewed and agreement upon by the patient.
--- NOTE | 2024-02-15 15:00 | OPREHPOC ---
Outpatient Therapy Plan of Care This is a Multidisciplinary Plan of Care that may contain components documented by all disciplines (PT, OT, and ST.) PT Problem 1 PT Problem #1 Knowledge Deficit PT Goal 1 Goal 1. independent and compliant with HEP Target Visit 4 Progress Met PT Problem 2 PT Problem #2 Pain PT Goal 1 Goal 1. decrease pain at worst to 3/10 or less to improve quality of life and return to prior level activities. Target Visit 8 Progress Met PT Problem 3 PT Problem #3 Impaired Range of Motion PT Goal 1 Goal 1. full active lumbar flexion without pain Target Visit 8 Progress Not Met PT Problem 4 PT Problem #4 Impaired Strength PT Goal 1 Goal 1. improve bilateral hip strength to 4+/5 or better overall 2. improve knee strength to 5/5 overall. met Target Visit 8 Progress Partially Met PT Problem 5 PT Problem #5 Impaired Functional Mobil PT Goal 1 Goal 1. oswestry to display less than 10% functional deficits 2. patient to ambulate 10 minutes in therapy without rest without increased pain. met 3. patient to perform home cleaning and care tasks for 2 hour bouts without increased pain. met Target Visit 8 Progress Partially Met
--- NOTE | 2024-02-15 15:00 | PTOPDC ---
Assessment and note entered by JT File, PT Evaluation Information Assessment Status Discharge Diagnosis low back pain Onset 11/18/23 Subjective Information patient reports she feels Good today. she reports she has had no severe pain lately. she reports the only activity that does increase her pain is bending forward. she reports she is compliant with her HEP at home. she reports she has returned to all activities around her home and in the community. she reports she is ready to be done with therapy at this time. Reported Pain Level Pain Score 0: Self Report Assessment PT Clinical Summary mrs. arce presents to skilled PT services for her 8th skilled therapy visit for lower back pain. she displays improved lumbar rom, improve knee strength, normal ambulation mechanics, and improved activity endurance. she does still display some bilateral hip weakness and pain with lumbar flexion. she has met goals 1 and 2, made partial progress on goals 4 and 5, and has not met goal 3. she is ready to DC therapy at this time, and will continue with independent HEP. Plan of Care PT Services Indicated Yes
== END 2024-02-15 15:06 | disposition home or self-care (01) ==
LOC: CHSPT 14:23
PROVIDERS: PCP Internal Medicine; Visit Provider Internal Medicine
DX: M54.50 Low back pain, unspecified (principal)
CPT/HCPCS: 97014; 97110; 97112; 97161; G0283

== ENCOUNTER 2024-02-20 08:54 | Outpatient (CLI) | payer MEDICARE, SELFPAY ==
[2024-02-20 09:38] LABS: Basophils Absolute Auto 0.03 K/mm3 (0.00-0.10); Basophils Percent Auto 0.6 % (0.0-1.0); Eosinophils Absolute Auto 0.16 K/mm3 (0.02-0.50); Eosinophils Percent Auto 3.1 % (1.0-6.0); Hematocrit 41.5 % (35.0-42.0); Hemoglobin 13.5 g/dL (11.7-13.8); Immature Granulocyte Absolute 0.02 K/mm3 (0.00-0.00); Immature Granulocyte Percent A 0.4 % (0.0-0.0); Lymphocytes Absolute Auto 1.72 K/mm3 (1.10-4.50); Lymphocytes Percent Auto 33.7 % (18.0-42.0); Mean Corpuscular HGB Conc 32.5 g/dL (32-36); Mean Corpuscular Hemoglobin 31.3 pg (27.0-31.0); Mean Corpuscular Volume 96.3 fL (78.0-102.0); Mean Platelet Volume 9.6 fl (9.2-11.8); Monocytes Absolute Auto 0.57 K/mm3 (0.10-0.90); Monocytes Percent Auto 11.2 % (2.0-11.0); Platelet Count Result 217 K/mm3 (150-420); Red Blood Count 4.31 M/mm3 (4.20-5.40); Red Cell Distribution Width 12.5 % (11.6-14.4); White Blood Count 5.1 K/mm3 (4.8-10.8)
[2024-02-20 10:19] LABS: CRP < 0.5 mg/dL (0.0-0.9)
== END 2024-02-20 08:55 | disposition home or self-care (01) ==
LOC: CHSLAB 08:58
PROVIDERS: PCP Internal Medicine; Visit Provider Internal Medicine
DX: D72.819 Decreased white blood cell count, unspecified (principal); D72.820 Lymphocytosis (symptomatic)
CPT/HCPCS: 36415; 85025; 86140

== ENCOUNTER 2024-04-04 09:29 | Outpatient (CLI) | payer MEDICARE, SELFPAY ==
[2024-04-04 09:30] VITALS: BP 121/73; PULSE 80; RESP 14; TEMP 36.5; O2SAT 98; BMI 26.1
[2024-04-04] MEDS: DENOSUMAB 60 MG/ML SYRINGE SUB-Q (09:51)
[2024-04-04 10:28] LABS: Albumin Level 4.1 g/dL (3.4-5.0); Calcium 9.4 mg/dL (8.5-10.1)
--- NOTE | 2024-04-04 10:43 | PC.NURSE ---
Patient here for every 6 month Prolia injection. Education given. Labs reviewed and ok'd. All concerns voiced answered. Injection administered SEE MAR. Tolerated well Safe exit of hospital per self/ambulatory.
== END 2024-04-04 09:30 | disposition home or self-care (01) ==
PROVIDERS: PCP Family Medicine; Visit Provider Obstetrics & Gynecology
DX: M81.0 Age-related osteoporosis without current pathological fracture (principal); Z92.29 Personal history of other drug therapy
CPT/HCPCS: 36415; 82040; 82310; 96372; J0897

== ENCOUNTER 2024-08-05 12:00 | Outpatient (CLI) | payer MEDICARE, SELFPAY ==
--- NOTE | ~2024-08-05 | MM_ITS ---
EXAMINATION: MM screening [facility] BI w bakari HISTORY: Screening TECHNIQUE: Craniocaudal and mediolateral oblique 3-D tomosynthesis images were obtained and synthetic 2-D images were generated. CAD analysis was submitted and interpreted. COMPARISON: Comparison to multiple prior studies sequentially, with oldest reviewed study dated 07/21. BREAST PARENCHYMAL COMPOSITION: Not Dense: The breasts are almost entirely fatty. FINDINGS: There is no evidence of suspicious mass, calcification, or architectural distortion to sugg est malignancy in either breast. There has been no suspicious interval change. IMPRESSION: 1. No mammographic evidence of malignancy. 2. Recommend routine screening mammography in one year. BI-RADS Category 1: Negative Reviewed, dictated and finalized at location B.
--- NOTE | ~2024-08-05 | DEXA_ITS ---
Bone Density Report Name: NAVDEEP RASMUSSEN Age: 79 Sex: Female Ethnicity: White Date of : 1945 Indication: osteopenia; monitoring treatment; height loss; secondary osteoporosis; Referring Provider: JAYY NOVA Study: Bone densitometry was performed. Exam Date: August 05, 2024 Accession number: [id number] Bone Density: Region BMD T-score Z-score Classification AP Spine(L2, L3) 1.334 2.5 5.1 Normal Femoral Neck (Left) 0.614 -2.1 0.1 Osteopenia Total Hip (Left) 0.800 -1.2 0.7 Osteopenia Femoral Neck (Right) 0.993 1.3 3.5 Normal Total Hip (Right) 0.932 -0.1 1.8 Normal Femoral Neck Mean 0.803 -0.4 1.8 Normal Total Hip Mean 0.866 -0.6 1.3 Normal World Health Organization criteria for BMD impression classify patients as: Normal (T-score at or above -1.0), Osteopenia (T-score between -1.0 and -2.5), or Osteoporosis (T-score at or below -2.5). 10-year Fracture Risk: FRAX not reported because: Treated for osteoporosis Previous Exams: Region Exam Age BMD T-score BMD Change BMD Change Date g/cm2 vs Baseline vs Previous AP Spine (L2-L3) 08/05/2024 79 1.334 2.5 0.062 (4.8%)* 0.062 (4.8%)* 07/29/2022 77 1.273 2.0 Total Hip(Left) 08/05/2024 79 0.800 -1.2 -0.002 (-0.2%) -0.002 (-0.2%) 12/27/2019 74 0.801 -1.2 Total Hip(Right) 08/05/2024 79 0.932 -0.1 0.105 (12.7%)# 0.084 (9.9%)* 07/29/2022 77 0.848 -0.8 0.021 (2.6%)# -0.055 (-6.1%) 12/27/2019 74 0.902 -0.3 0.076 (9.2%)* 0.089 (10.9%)* 08/29/2014 69 0.814 -1.0 -0.013 (-1.5%) -0.028 (-3.3%) 07/29/2011 66 0.841 -0.8 0.015 (1.8%) 0.003 (0.4%) 07/27/2009 64 0.838 -0.9 0.012 (1.4%) 0.012 (1.4%) 07/23/2007 62 0.826 -0.9 *Denotes significance at 95% confidence level, LSC for AP Spine = 0.022 g/cm2, LSC for Total Hip = 0.027 g/cm2 # Denotes dissimilar scan types or analysis methods Clinical Information Provided by Patient: Has secondary osteoporosis Is being treated for osteoporosis Has used the following medications: Vitamin D, Calcium, multi vit Patient maximum height was 68 Menopause Age: 57 No regular weight bearing exercise Drinks caffeinated beverages Onset of menses at age 15 Number of children 2 Impression: The patient has low bone mass, based on the Left Femoral Neck T-score. No significant bone loss was observed. Discussion: PATIENT UNDER TREATMENT WITH NO SIGNIFICANT BMD LOS
== END 2024-08-05 12:01 | disposition home or self-care (01) ==
LOC: CHSIMG 12:03
PROVIDERS: PCP Internal Medicine; Visit Provider Nurse Practitioner Obstetrics & Gynecology
DX: Z12.31 Encounter for screening mammogram for malignant neoplasm of breast (principal); Z78.0 Asymptomatic menopausal state; M85.89 Other specified disorders of bone density and structure, multiple sites
CPT/HCPCS: 77063; 77067; 77080

== ENCOUNTER 2024-08-19 11:18 | Outpatient (CLI) | payer MEDICARE, SELFPAY ==
[2024-08-19 11:37] LABS: Basophils Absolute Auto 0.04 K/mm3 (0.00-0.10); Basophils Percent Auto 0.8 % (0.0-1.0); Hematocrit 40.9 % (35.0-42.0); Hemoglobin 13.5 g/dL (11.7-13.8); Immature Granulocyte Absolute 0.01 K/mm3 (0.00-0.00); Immature Granulocyte Percent A 0.2 % (0.0-0.0); Lymphocytes Absolute Auto 1.61 K/mm3 (1.10-4.50); Lymphocytes Percent Auto 32.5 % (18.0-42.0); Mean Corpuscular Hemoglobin 31.6 pg (27.0-31.0); Mean Corpuscular Volume 95.8 fL (78.0-102.0); Mean Platelet Volume 9.7 fl (9.2-11.8); Monocytes Absolute Auto 0.56 K/mm3 (0.10-0.90); Monocytes Percent Auto 11.3 % (2.0-11.0); Neutrophils Absolute Auto 2.54 K/mm3 (1.70-7.20); Neutrophils Percent Auto 51.2 % (50.0-70.0); Platelet Count Result 238 K/mm3 (150-420); Red Blood Count 4.27 M/mm3 (4.20-5.40); Red Cell Distribution Width 12.4 % (11.6-14.4)
[2024-08-19 13:27] LABS: Alanine Aminotransferase 22 U/L (14-59); Albumin Level 3.7 g/dL (3.4-5.0); Alkaline Phosphatase 73 U/L (46-116); Anion Gap 6 mmol/L (4-12); Aspartate Amino Transferase 21 U/L (15-37); Bilirubin,Total 0.3 mg/dL (0.00-1.00); Blood Urea Nitrogen 15 mg/dL (7-18); Calcium 9.6 mg/dL (8.5-10.1); Carbon Dioxide 31 mmol/L (21-32); Chloride 102 mmol/L (98-108); Estimated Glomerular Filt Rate > 60; Glucose 95 mg/dL (70-99); Osmolality Calculated 288 mOsm/kg (285-295); Potassium 4.7 mmol/L (3.5-5.1); Sodium 139 mmol/L (136-145); Total Protein 6.8 g/dL (6.4-8.2)
[2024-08-19 13:29] LABS: CRP < 0.5 mg/dL (0.0-0.9)
== END 2024-08-19 11:19 | disposition home or self-care (01) ==
LOC: CHSLAB 11:20
PROVIDERS: PCP Internal Medicine; Visit Provider Internal Medicine
DX: D72.819 Decreased white blood cell count, unspecified (principal)
CPT/HCPCS: 36415; 80053; 85025; 86140

== ENCOUNTER 2024-10-07 10:58 | Outpatient (CLI) | payer MEDICARE, SELFPAY ==
[2024-10-07 11:13] VITALS: BP 136/72; PULSE 72; RESP 16; TEMP 36.4; O2SAT 97; BMI 26.6
[2024-10-07] MEDS: DENOSUMAB 60 MG/ML SYRINGE SUB-Q (11:23)
--- NOTE | 2024-10-07 11:25 | PC.NURSE ---
Patient here for Prolia injection. Education given. No concerns voiced. Injection given. Tolerated well. SEE MAR/patient care notes.
== END 2024-10-07 10:59 | disposition home or self-care (01) ==
PROVIDERS: PCP Internal Medicine; Visit Provider Obstetrics & Gynecology
DX: M81.0 Age-related osteoporosis without current pathological fracture (principal); Z92.29 Personal history of other drug therapy
CPT/HCPCS: 96372; J0897

== ENCOUNTER 2025-02-10 11:29 | Outpatient (CLI) | payer MEDICARE, SELFPAY ==
--- NOTE | ~2025-02-10 | XR_ITS ---
Left Knee Technique: AP, lateral, and sunrise views were obtained. Clinical History: Pain Findings: No fracture or dislocation is seen. Osseous alignment is anatomic. Mild tricompartmental de generative change present. Soft tissues are unremarkable. No joint effusion is seen. Impression: Mild tricompartmental degenerative change. Reviewed, dictated and finalized at [facility]. Impression: Mild tricompartmental degenerative change.
--- OUTSIDE RECORDS SUMMARY | 2025-02-10 13:10 | XMS_ITS | Patient Health Record ---
Author Organization [facility] Address [address] [place], [place] [address] Care Team Providers Care Vending Supervisor Name Role Phone NICK MORRELL Unavailable [phone] Brigitte Inocencio Unavailable Unavailable RAIN MASSEY Unavailable [phone] EREN HIDALGO Unavailable [phone] Allergies No Known Allergies Reason For Referral No Information Medications Medication SIG (Take, Route, Frequency, Duration) Notes Start Date End Date Status Nabumetone 500 MG Oral Tablet ORAL nabumetone 500 MG Oral TabletOriginal Medicationnabumetone 500 MG Oral Tablet *Reorder from [facility] for eRx and Interaction Alerts* 08/08/2014 Active Immunizations Vaccine Route Administration Date Status Comme nts Influenza, high dose seasonal Unknown 08/10/2023 Admini stered Vital Signs Height-cm 167.64 cm 05/23/2024 Weight-kg 71.67 kg 05/23/2024 Height 66.00 in 05/23/2024 Weight 158 lbs 05/23/2024 BMI 25.5 kg/m2 05/23/2024 Encounters Encounter Location Date Provider Diagnosis [address] [id number] 03/14/2024 EREN HIDALGO Other hammer toe(s) (acquired), right foot M20.41 ; Tinea unguium B35.1 ; Other hammer toe(s) (acquired), left foot M20.42 ; Pain in right toe(s) M79.674 ; Pain in left toe(s) M79.675 ; Unspecified atherosclerosis of [place] arteries of extremities, bilateral legs I70.203 ; Acquired keratosis [keratoderma] palmaris et plantaris L85.1 ; Atherosclerosis of [place] arteries of extremities with intermittent claudication, bilateral legs I70.213 ; Congenital pes cavus, 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 and Congenital pes cavus, left foot Q66.[address] [id number] 05/23/2024 EREN HIDALGO Other hammer toe(s) (acquired), right foot M20.41 ; Tinea unguium B35.1 ; Other hammer toe(s) (acquired), left foot M20.42 ; Pain in right toe(s) M79.674 ; Pain in left toe(s) M79.675 ; Unspecified atherosclerosis of [place] arteries of extremities, bilateral legs I70.203 ; Acquired keratosis [keratoderma] palmaris et plantaris L85.1 ; Atherosclerosis of [place] arteries of extremities with intermittent claudication, bilateral legs I70.213 ; Congenital pes cavus, 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 and Congenital pes cavus, left foot Q66.[address] [id number] 07/25/2024 EREN HIDALGO Other hammer toe(s) (acquired), right foot M20.41 ; Tinea unguium B35.1 ; Other hammer toe(s) (acquired), left foot M20.42 ; Pain in right toe(s) M79.674 ; Pain in left toe(s) M79.675 ; Unspecified atherosclerosis of [place] arteries of extremities, bilateral legs I70.203 ; Acquired keratosis [keratoderma] palmaris et plantaris L85.1 ; Atherosclerosis of [place] arteries of extremities with intermittent claudication, bilateral legs I70.213 ; Congenital pes cavus, 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 and Congenital pes cavus, left foot Q66.[address] [id number] 10/03/2024 EREN HIDALGO Other hammer toe(s) (acquired), right foot M20.41 ; Tinea unguium B35.1 ; Other hammer toe(s) (acquired), left foot M20.42 ; Pain in right toe(s) M79.674 ; Pain in left toe(s) M79.675 ; Unspecified atherosclerosis of [place] arteries of extremities, bilateral legs I70.203 ; Acquired keratosis [keratoderma] palmaris et plantaris L85.1 ; Atherosclerosis of [place] arteries of extremities with intermittent claudication, bilateral legs I70.213 ; Congenital pes cavus, 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 and Congenital pes cavus, left foot Q66.[address] [id number] 12/05/2024 RAIN MASSEY Tinea unguium B35.1 ; Pain in left foot M79.672 ; Pain in right foot M79.671 ; Atherosclerosis of [place] arteries of extremities with intermittent claudication, bilateral legs I70.213 and Acquired keratosis [keratoderma] palmaris et plantaris L85.1 Assessments Encounter Date Diagnosis (ICD Code) Assessment Notes Treatment Notes Treatment Clinical Notes Section Notes 03/14/2024 Tinea unguium (ICD-10 - B35.1) Aseptic debridement of elongated thickened nails x 10 using sterile nippers, nails were debrided in length and thickness by 30% utilizing a nail nipper without incident. The patient was educated regarding all treatment options that include topical and oral antifungal treatments. I discussed the options of taking a sample of the nail to confirm diagnosis. Nail clippings were not sent for pathology analysis. The patient was educated why and how the fungal infection evolved in their feet and the patient was given information regarding how to prevent further infection. The patient was told to keep feet dry and change socks. The patient was told to be careful with old shoes and excessive sweating. The patient was educated regarding both OTC and prescription treatments. 03/14/2024 Other hammer toe(s) (acquired), right foot (ICD-10 - M20.41) The patient was educated regarding how to mechanically stabilize their deformity. The patient was given education about shoe recommendations specific for the condition. The patient was educated about custom orthotics and how appropriate shoes and orthotics can prevent further worsening of the deformity. The patient was educated about how bad shoe habits can worsen the condition. NSAIDS, P.T., injections and other conservative treatments were discussed. Both surgical and non surgical treatments were discussed, but conservative options were emphasized. 05/23/2024 Tinea unguium (ICD-10 - B35.1) Aseptic debridement of elongated thickened nails x 10 using sterile nippers, nails were debrided in length and thickness by 30% utilizing a nail nipper without incident. The patient was educated regarding all treatment options that include topical and oral antifungal treatments. I discussed the options of taking a sample of the nail to confirm diagnosis. Nail clippings were not sent for pathology analysis. The patient was educated why and how the fungal infection evolved in their feet and the patient was given information regarding how to prevent further infection. The patient was told to keep feet dry and change socks. The patient was told to be careful with old shoes and excessive sweating. The patient was educated regarding both OTC and prescription treatments. 05/23/2024 Other hammer toe(s) (acquired), right foot (ICD-10 - M20.41) The patient was educated regarding how to mechanically stabilize their deformity. The patient was given education about shoe recommendations specific for the condition. The patient was educated about custom orthotics and how appropriate shoes and orthotics can prevent further worsening of the deformity. The patient was educated about how bad shoe habits can worsen the condition. NSAIDS, P.T., injections and other conservative treatments were discussed. Both surgical and non surgical treatments were discussed, but conservative options were emphasized. 07/25/2024 Other hammer toe(s) (acquired), right foot (ICD-10 - M20.41) The patient was educated regarding how to mechanically stabilize their deformity. The patient was given education about shoe recommendations specific for the condition. The patient was educated about custom orthotics and how appropriate shoes and orthotics can prevent further worsening of the deformity. The patient was educated about how bad shoe habits can worsen the condition. NSAIDS, P.T., injections and other conservative treatments were discussed. Both surgical and non surgical treatments were discussed, but conservative options were emphasized. 07/25/2024 Tinea unguium (ICD-10 - B35.1) Aseptic debridement of elongated thickened nails x 10 using sterile nippers, nails were debrided in length and thickness by 30% utilizing a nail nipper without incident. The patient was educated regarding all treatment options that include topical and oral antifungal treatments. I discussed the options of taking a sample of the nail to confirm diagnosis. Nail clippings were not sent for pathology analysis. The patient was educated why and how the fungal infection evolved in their feet and the patient was given information regarding how to prevent further infection. The patient was told to keep feet dry and change socks. The patient was told to be careful with old shoes and excessive sweating. The patient was educated regarding both OTC and prescription treatments. 10/03/2024 Tinea unguium (ICD-10 - B35.1) Aseptic debridement of elongated thickened nails x 10 using sterile nippers, nails were debrided in length and thickness by 30% utilizing a nail nipper without incident. The patient was educated regarding all treatment options that include topical and oral antifungal treatments. I discussed the options of taking a sample of the nail to confirm diagnosis. Nail clippings were not sent for pathology analysis. The patient was educated why and how the fungal infection evolved in their feet and the patient was given information regarding how to prevent further infection. The patient was told to keep feet dry and change socks. The patient was told to be careful with old shoes and excessive sweating. The patient was educated regarding both OTC and prescription treatments. 10/03/2024 Other hammer toe(s) (acquired), right foot (ICD-10 - M20.41) The patient was educated regarding how to mechanically stabilize their deformity. The patient was given education about shoe recommendations specific for the condition. The patient was educated about custom orthotics and how appropriate shoes and orthotics can prevent further worsening of the deformity. The patient was educated about how bad shoe habits can worsen the condition. NSAIDS, P.T., injections and other conservative treatments were discussed. Both surgical and non surgical treatments were discussed, but conservative options were emphasized. 12/05/2024 Tinea unguium (ICD-10 - B35.1) Nails 1-5 Bilateral were debrided extensively with nail nippers and emery board, reducing length and girth to pink healthy tissue with any subungual debris and necrotic tissue removed 12/05/2024 Pain in left foot (ICD-10 - M79.672) 12/05/2024 Pain in right foot (ICD-10 - M79.671) 10/03/2024 Other hammer toe(s) (acquired), left foot (ICD-10 - M20.42) 07/25/2024 Other hammer toe(s) (acquired), left foot (ICD-10 - M20.42) 05/23/2024 Other hammer toe(s) (acquired), left foot (ICD-10 - M20.42) 03/14/2024 Other hammer toe(s) (acquired), left foot (ICD-10 - M20.42) 03/14/2024 Pain in right toe(s) (ICD-10 - M79.674) 05/23/2024 Pain in right toe(s) (ICD-10 - M79.674) 07/25/2024 Pain in right toe(s) (ICD-10 - M79.674) 10/03/2024 Pain in right toe(s) (ICD-10 - M79.674) 12/05/2024 Atherosclerosis of [place] arteries of extremities with intermittent claudication, bilateral legs (ICD-10 - I70.213) 12/05/2024 Acquired keratosis [keratoderma] palmaris et plantaris (ICD-10 - L85.1) A total of 2 corns or calluses, as described in the note above, were cut and pared utilizing a #15 blade 10/03/2024 Pain in left toe(s) (ICD-10 - M79.675) 07/25/2024 Pain in left toe(s) (ICD-10 - M79.675) 05/23/2024 Pain in left toe(s) (ICD-10 - M79.675) 03/14/2024 Pain in left toe(s) (ICD-10 - M79.675) 03/14/2024 Unspecified atherosclerosis of [place] arteries of extremities, bilateral legs (ICD-10 - I70.203) Patient educated on risks and aggravating factors of PVD, including conservative treatment options such as a diet and exercise regimen to aid in slowing progression of vascular disease 05/23/2024 Unspecified atherosclerosis of [place] arteries of extremities, bilateral legs (ICD-10 - I70.203) Patient educated on risks and aggravating factors of PVD, including conservative treatment options such as a diet and exercise regimen to aid in slowing progression of vascular disease 10/03/2024 Unspecified atherosclerosis of [place] arteries of extremities, bilateral legs (ICD-10 - I70.203) Patient educated on risks and aggravating factors of PVD, including conservative treatment options such as a diet and exercise regimen to aid in slowing progression of vascular disease 07/25/2024 Unspecified atherosclerosis of [place] arteries of extremities, bilateral legs (ICD-10 - I70.203) Patient educated on risks and aggravating factors of PVD, including conservative treatment options such as a diet and exercise regimen to aid in slowing progression of vascular disease 07/25/2024 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 After removal of overlying extensive hyperkeratosis, healthy tissue was noted and care was taken to assure that no undermining or probing was present. It should be noted that no probing was noted and no infection or drainage was noted. 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 After removal of overlying extensive hyperkeratosis, healthy tissue was noted and care was taken to assure that no undermining or probing was present. It should be noted that no probing was noted and no infection or drainage was noted. 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 After removal of overlying extensive hyperkeratosis, healthy tissue was noted and care was taken to assure that no undermining or probing was present. It should be noted that no probing was noted and no infection or drainage was noted. 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 After removal of overlying extensive hyperkeratosis, healthy tissue was noted and care was taken to assure that no undermining or probing was present. It should be noted that no probing was noted and no infection or drainage was noted. 03/14/2024 Atherosclerosis of [place] arteries of extremities with intermittent claudication, bilateral legs (ICD-10 - I70.213) 05/23/2024 Atherosclerosis of [place] arteries of extremities with intermittent claudication, bilateral legs (ICD-10 - I70.213) 07/25/2024 Atherosclerosis of [place] arteries of extremities with intermittent claudication, bilateral legs (ICD-10 - I70.213) 10/03/2024 Atherosclerosis of [place] arteries of extremities with intermittent claudication, bilateral legs (ICD-10 - I70.213) 10/03/2024 Congenital pes cavus, right foot (ICD-10 - Q66.71) 03/14/2024 Congenital pes cavus, right foot (ICD-10 - Q66.71) 05/23/2024 Congenital pes cavus, right foot (ICD-10 - Q66.71) 07/25/2024 Congenital pes cavus, right foot (ICD-10 - Q66.71) 07/25/2024 Congenital pes cavus, left foot (ICD-10 - Q66.72) 05/23/2024 Congenital pes cavus, left foot (ICD-10 - Q66.72) 03/14/2024 Congenital pes cavus, left foot (ICD-10 - Q66.72) 10/03/2024 Congenital pes cavus, left foot (ICD-10 - Q66.72) Plan Of Treatment Next Appt Details Provider Name:NICK IRIZARRY, 02/27/2025 02:20:00 PM, [address] [place] [address], [phone], Insurance Providers Payer Name Payer Address Payer Phone Subscriber Number Group Number Insured Name Patient Relationship to Insured Coverage Start Date Coverage End Date Medicare Part B [place] [address] [place] [phone] [id number] NAVDEEP RASMUSSEN Self - patient is the insured [facility] [address] [address] [place] [phone] [id number] NAVDEEP RASMUSSEN Self - patient is the insured
--- OUTSIDE RECORDS SUMMARY | 2025-02-10 13:10 | XMS_ITS ---
Author Organization [facility] Address [address] [place], [place] [id number] Care Team Providers Care Small Products I Assembler Name Role Phone NICK MORRELL Unavailable [phone] Inocencio Briggs Unavailable Unavailable RAIN MASSEY Unavailable [phone] REASON FOR VISIT Patient presents for at-risk foot care . The patient has painful toenails and calluses that are causing difficulty with ambulation and shoegear. The onset is gradual Medications Medication SIG (Take, Route, Frequency, Duration) Notes Start Date End Date Status Nabumetone 500 MG Oral Tablet ORAL nabumetone 500 MG Oral TabletOriginal Medicationnabumetone 500 MG Oral Tablet *Reorder from [employer] for eRx and Interaction Alerts* 08/08/2014 Active Encounters Encounter Location Date Provider Diagnosis [address] [id number] 12/05/2024 RAIN MASSEY Tinea unguium B35.1 ; Pain in left foot M79.672 ; Pain in right foot M79.671 ; Atherosclerosis of [place] arteries of extremities with intermittent claudication, bilateral legs I70.213 and Acquired keratosis [keratoderma] palmaris et plantaris L85.1 Assessments Encounter Date Diagnosis (ICD Code) Assessment Notes Treatment Notes Treatment Clinical Notes Section Notes 12/05/2024 Tinea unguium (ICD-10 - B35.1) Nails 1-5 Bilateral were debrided extensively with nail nippers and emery board, reducing length and girth to pink healthy tissue with any subungual debris and necrotic tissue removed 12/05/2024 Pain in left foot (ICD-10 - M79.672) 12/05/2024 Pain in right foot (ICD-10 - M79.671) 12/05/2024 Atherosclerosis of [place] arteries of extremities with intermittent claudication, bilateral legs (ICD-10 - I70.213) 12/05/2024 Acquired keratosis [keratoderma] palmaris et plantaris (ICD-10 - L85.1) A total of 2 corns or calluses, as described in the note above, were cut and pared utilizing a #15 blade Plan Of Treatment Treatment Notes Assessment Notes Tinea unguium Nails 1-5 Bilateral were debrided extensively with nail nippers and emery board, reducing length and girth to pink healthy tissue with any subungual debris and necrotic tissue removed Acquired keratosis [keratode rma] palmaris et plantaris A total of 2 corns or calluses, as described in the note above, were cut and pared utilizing a #15 blade Next Appt Details Follow Up: 10 - 12 weeks, Re ason: At-Risk Foot care, sooner if problems develop. Provider Name:NICK IRIZARRY, 02/27/2025 02:20:00 PM, [address] [place] [address], [phone], Progress Notes * NAVDEEP RASMUSSEN ADOB: [birth year] (79 yo F)Acc No.[id number]:12/05/2024 Patient: Isela ADDY NAVDEEP A Provider: Anai Massey DPM :1945 A ge:79 Y S ex:Female Date:12/05/2024 Address:[address] [place] [address] Subjective: * Chief Complaints: * Maria A carey presents for at-risk foot care . The patient has painful toenails and calluses that are causing difficulty with ambulation and shoegear. The onset is gradual * HPI: H PI: General care Maria A carey presents to the office for at risk foot care. Patient states that their nails are thickened, elongated and painful. Patient states that it is aggravated by shoe gear. Onset is gradual. Patient denies being diabetic., Patient denies taking blood thinners., Date last seen by Dr. Briggs was 07/2024., Initials [facility]. * Medical History: * Surgical History: * Hospitalization/Major Diagno stic Procedure: * Medications: T akingNabumetone 500 MG Oral Tablet ORAL , Notes to Pharmacist: nabumetone 500 MG Oral TabletOriginal Medicationnabumetone 500 MG Oral Tablet *[facility] and Interaction Alert[facility]*Medication List reviewed and reconciled with the patientTaking Nabumetone 500 MG Oral Tablet ORAL , Notes to Pharmacist: nabumetone 500 MG Oral TabletOriginal Medicationnabumetone 500 MG Oral Tablet *Reorder from [facility] for eRx and Interaction Alerts*Medication List reviewed and reconciled with the patient Objective: * Vitals: * Examination: P hysical Examination: General appearance: A lert, pleasant, well-nourished and in no acute distress. D ermatologic: Skin findings: S kin is thin, atrophic and lacking pedal hair. Hypertrophic / hyperkeratotic lesion: d orsal aspect of the left 4th digit, plantar aspect of the 1st metatarsal head. Nail pathology: N ails 1, 2, 3, 4, and 5 bilateral are elongated, thick, discolored, and dystrophic with subungual debris. They are painful to palpation. ? V ascular: Dorsalis pedis pulse: 1 /4 b ilateral. Posterior tibial pulse: 0 /4 bilateral. Capillary refill: g reater than 3 seconds. Edema: N o edema bilateral. N eurologic: Gross sensation G rossly intact to light touch. There is negative Tinel's sign. M usculoskeletal: Muscle Strength M uscle strength is 5/5 in regards to dorsiflexion, plantarflexion, inversion, and eversion in bilateral lower extremities. ? Assessment: * Assessment: 1. T inea unguium - B35.1 (Primary) 2 . P ain in left foot - M79.672 ? 3 . P ain in right foot - M79.671 4 . A therosclerosis of [place] arteries of extremities with intermittent claudication, bilateral legs - I70.213 5 . Acquired keratosis [keratoderma] palmaris et plantaris - L85.1 Plan: * Treatment: 2. A cquired keratosis [keratoderma] palmaris et plantaris Notes: A total of 2 corns or calluses, as described in the note above, were cut and pared utilizing a #15 blade * Procedure Codes: 1 1056 TRIM SKIN LESIONS, 2 TO 4, Modifiers: Q8 34462 DEBRIDE NAIL, 6 OR MORE, Modifiers: 59 , Q8 * Follow Up: 1 0 - 12 weeks (Reason: At-Risk Foot care, sooner if problems develop.) * Billing Information: * Visit Code: * Procedure Codes: 80463 TRIM SKIN LESIONS, 2 TO 4. Modifiers: Q8 27118 DEBRIDE NAIL, 6 OR MORE. 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 Patient states that their nails are thickened, elongated and painful. Patient states that it is aggravated by shoe gear. Onset is gradual. Patient denies being diabetic., Patient denies taking blood thinners., Date last seen by Dr. Briggs was 07/2024., Initials [facility] Examination Category Sub-Category Detail Notes Category Not es Dermatologic Skin findings: Skin is thin, at rophic and lacking pedal hair Nail pathology: Nails 1, 2, 3, 4, an d 5 bilateral are elongated, thick, discolored, and dystrophic with subungual debris. They are painful to palpation Hypertrophic / hyperkeratotic lesion: do rsal aspect of the left 4th digit, plantar aspect of the 1st metatarsal head Neurologic Gross sensation Grossly intact t o light touch. There is negative Tinel's sign Vascular Dorsalis pedis pulse: 1/4 bilateral Edema: No edema bilateral Capillary refill: greater than 3 secon ds Posterior tibial pulse: 0/4 bilateral Physical Examination General appearance: Alert, pleasant, well-nourished and in no acute distress Musculoskeletal Muscle Strength Muscle strength is 5/5 in regards to dorsiflexion, plantarflexion, inversion, and eversion in bilateral lower extremities
--- OUTSIDE RECORDS SUMMARY | 2025-02-10 13:10 | XMS_ITS ---
Author Organization [facility] Address [address] [place], [place] [id number] Care Team Providers Care Torpedo Worker Name Role Phone NICK MORRELL Unavailable [phone] Inocencio Briggs Unavailable Unavailable EREN HIDALGO Unavailable [phone] REASON FOR VISIT *General care Medications Medication SIG (Take, Route, Frequency, Duration) Notes Start Date End Date Status Nabumetone 500 MG Oral Tablet ORAL nabumetone 500 MG Oral TabletOriginal Medicationnabumetone 500 MG Oral Tablet *Reorder from [employer] for eRx and Interaction Alerts* 08/08/2014 Active Encounters Encounter Location Date Provider Diagnosis [facility] [address] [place], [place] [id number] 10/03/2024 EREN HIDALGO Other hammer toe(s) (acquired), right foot M20.41 ; Tinea unguium B35.1 ; Other hammer toe(s) (acquired), left foot M20.42 ; Pain in right toe(s) M79.674 ; Pain in left toe(s) M79.675 ; Unspecified atherosclerosis of [place] arteries of extremities, bilateral legs I70.203 ; Acquired keratosis [keratoderma] palmaris et plantaris L85.1 ; Atherosclerosis of [place] arteries of extremities with intermittent claudication, bilateral legs I70.213 ; Congenital pes cavus, 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 10/03/2024 Tinea unguium (ICD-10 - B35.1) Aseptic [...] prescription treatments. 10/03/2024 Other hammer toe(s) (acquired), left foot (ICD-10 - M20.42) 10/03/2024 Pain in right toe(s) (ICD-10 - M79.674) 10/03/2024 Pain in left toe(s) (ICD-10 - M79.675) 10/03/2024 Unspecified atherosclerosis of [place] arteries of extremities, bilateral legs (ICD-10 - I70.203) Patient educated on risks and aggravating factors of PVD, including conservative treatment options such as a diet and exercise regimen to aid in slowing progression of vascular disease 10/03/2024 Acquired keratosis [keratoderma] palmaris et plantaris [...] no infection or drainage was noted. 10/03/2024 Atherosclerosis of [place] arteries of extremities with intermittent claudication, bilateral legs (ICD-10 - I70.213) 10/03/2024 Congenital pes cavus, right foot (ICD-10 - Q66.71) 10/03/2024 Congenital pes cavus, left foot (ICD-10 - Q66.72) Plan Of Treatment Treatment Notes Assessment Notes Other hammer toe(s) (acquired), right fo ot The patient was educated regarding how to [...] were discussed, but conservative options were emphasized. Tinea unguium Aseptic debridement of elongated thickened nails x [...] educated regarding both OTC and prescription treatments. Unspecified atherosclerosis of [place] arteries of extremities, bilateral legs Patient educated on risks and aggravating factors of PVD, including conservative treatment options such as a diet and exercise regimen to aid in slowing progression of vascular disease Acquired keratosis [keratode rma] palmaris et plantaris Pre-ulcerative keratoderma debrided sharply down to the level of healthy tissue using a 15 blade. After removal of overlying extensive hyperkeratosis, healthy tissue was noted and care was taken to assure that no undermining or probing was present. It should be noted that no probing was noted and no infection or drainage was noted. Next Appt Details Follow Up: 3 Months, Reason: Provider Name:NICK IRIZARRY, 02/27/2025 02:20:00 PM, [address] [place] [address], [phone], Progress Notes * NAVDEEP RASMUSSEN ADOB: [birth year] (79 yo F)Acc No.[id number]:10/03/2024 Patient: NAVDEEP DELACRUZ Provider: Maria Del Carmen HIDALGO :1945 A ge:79 Y S ex:Female Date:10/03/2024 Address:[address] [place], [place] [phone] Subjective: * Chief Complaints: * 1 . *General care. * HPI: H PI: General care P atient presents to the office for at risk foot care. Patient states that their nails are thickened, elongated and painful. Patient states that it is aggravated by shoe gear. Onset is gradual. Patient denies being diabetic., Patient denies taking blood thinners., Date last seen by Dr. Briggs was 07/2024., Initials [facility]. * ROS: G eneral / Constitutional: Patient denies w eakness. R espiratory: Patient denies c hronic cough, shortness of breath, sputum production. C ardiovascular: Patient denies c hest pain, history of [place], irregular heartbeat. M usculoskeletal: Patient complains of h ammertoes. P eripheral Vascular: Patient denies b lanching of skin, cold extremities, decreased sensation in extremities. S kin: Patient complains of f ungal nails, nail changes. ? N eurologic: Patient denies d izziness, gait abnormality, headache. * Medical History: * Medications: T aking Nabumetone 500 MG Oral Tablet ORAL , Notes to Pharmacist: nabumetone 500 MG Oral TabletOriginal Medicationnabumetone 500 MG Oral Tablet *Reorder from [facility] for eRx and Interaction Alerts* Objective: * Vitals: * Examination: P hysical Examination: V ascular: Dorsalis Pedis pulse noted at 1/4 right foot and 1/4 left foot and Posterior Tibial pulse noted at 1/4 right foot and 1/4 left foot, Capillary refill times noted to be less than three seconds x ten, Temperature gradient noted to be warm to cool to bilateral foot, pedal hair present to bilateral foot and no varicosities are noted Dermatologic: there are no open lesions, no signs of active clinical infection, no erythema noted, no ecchymoses, nails are elongated thickened and dystrophic with subungual debris x ten, hyperkeratotic tissue noted sub fifth metatarsal head to bilateral foot Musculoskeletal: there is pain to palpation onto nail plate x ten, no calf pain noted bilaterally, arch height noted at 2/5 non-weight bearing bilaterally, first metatarsophalangeal joint range of motion 30 deg non-weight bearing bilaterally, flexible fifth digit hammer toe deformity noted to bilateral foot reducible with kelikian push up test , pain to palpation hyperkeratotic lesion bilateral foot Neurology: protective sensation intact to light touch bilateral digits one through five, vibratory sensation intact to first metatarsophalangeal joint bilaterally. Assessment: * Assessment: 1. T inea unguium - B35.1 (Primary) 2 . O ther hammer toe(s) (acquired), right foot - M20.41 3 . O ther hammer toe(s) (acquired), left foot - M20.42 ? 4 . P ain in right toe(s) - M79.674 5 . P ain in left toe(s) - M79.675 6 . U nspecified atherosclerosis of [place] arteries of extremities, bilateral legs - I70.203 7 . A cquired keratosis [keratoderma] palmaris et plantaris - L85.1 8 . A therosclerosis of [place] arteries of extremities with intermittent claudication, bilateral legs - I70.213 9 . C ongenital pes cavus, right foot - Q66.71 1 0. C ongenital pes cavus, left foot - Q66.72 Plan: * Treatment: 2. O ther hammer toe(s) (acquired), right foot Notes: The patient was educated regarding how to [...] were discussed, but conservative options were emphasized. 3. U nspecified atherosclerosis of [place] arteries of extremities, bilateral legs Notes: Patient educated on risks and aggravating factors of PVD, including conservative treatment options such as a diet and exercise regimen to aid in slowing progression of vascular disease ? 4. A cquired keratosis [keratoderma] palmaris et plantaris Notes: Pre-ulcerative keratoderma debrided sharply down to the level of healthy tissue using a 15 blade. After removal of overlying extensive hyperkeratosis, healthy tissue was noted and care was taken to assure that no undermining or probing was present. It should be noted that no probing was noted and no infection or drainage was noted. * Procedure Codes: 1 1056 TRIM SKIN LESIONS, 2 TO 4, Modifiers: Q8 , 50759 DEBRIDE NAIL, 6 OR MORE, Modifiers: 59 , Q8 * Follow Up: 3 Months * Billing Information: * Visit Code: * Procedure Codes: 58446 TRIM SKIN LESIONS, 2 TO 4. Modifiers: Q8 07682 DEBRIDE NAIL, 6 OR MORE. Modifiers: 59, Q8 * ECTOR CLIP ON SUNGLASSES Sign off status: Completed true * Provider: Maria Del Carmen HIDALGO Date: 1 12/04/2023 Generated for Babs jones/Marcial/Nasreen on: 0 02/10/2025 01:10 PM CDT History [...] Category Sub-Category Detail Notes Category Not es Physical Examination Vascular: Dorsalis Pedis pulse noted at 1/4 right foot and 1/4 left foot and Posterior Tibial pulse noted at 1/4 right foot and 1/4 left foot, Capillary refill times noted to be less than three seconds x ten, Temperature gradient noted to be warm to cool to bilateral foot, pedal hair present to bilateral foot and no varicosities are noted Dermatologic: there are no open lesions, no signs of active clinical infection, no erythema noted, no ecchymoses, nails are elongated thickened and dystrophic with subungual debris x ten, hyperkeratotic tissue noted sub fifth metatarsal head to bilateral foot Musculoskeletal: there is pain to palpation onto nail plate x ten, no calf pain noted bilaterally, arch height noted at 2/5 non-weight bearing bilaterally, first metatarsophalangeal joint range of motion 30 deg non-weight bearing bilaterally, flexible fifth digit hammer toe deformity noted to bilateral foot reducible with kelikian push up test , pain to palpation hyperkeratotic lesion bilateral foot Neurology: protective sensation intact to light touch bilateral digits one through five, vibratory sensation intact to first metatarsophalangeal joint bilaterally
--- OUTSIDE RECORDS SUMMARY | 2025-02-10 13:10 | XMS_ITS ---
Author Organization [facility] Address [address] [place], [place] [address] Care Team Providers Care Spanish Speaking Babysitter Name Role Phone NICK MORRELL Unavailable [phone] Inocencio Briggs Unavailable Unavailable EREN HIDALGO Unavailable [phone] REASON FOR VISIT *General care Medications Medication SIG (Take, Route, Frequency, Duration) Notes Start Date End Date Status Nabumetone 500 MG Oral Tablet ORAL nabumetone 500 MG Oral TabletOriginal Medicationnabumetone 500 MG Oral Tablet *Reorder from [employer] for eRx and Interaction Alerts* 08/08/2014 Active Encounters Encounter Location Date Provider Diagnosis [address] [id number] 07/25/2024 EREN HIDALGO Other hammer toe(s) (acquired), right foot M20.41 ; Tinea unguium B35.1 ; Other hammer toe(s) (acquired), left foot M20.42 ; Pain in right toe(s) M79.674 ; Pain in left toe(s) M79.675 ; Unspecified atherosclerosis of [place] arteries of extremities, bilateral legs I70.203 ; Acquired keratosis [keratoderma] palmaris et plantaris L85.1 ; Atherosclerosis of [place] arteries of extremities with intermittent claudication, bilateral legs I70.213 ; Congenital pes cavus, 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 and Congenital pes cavus, left foot Q66.72 Assessments Encounter Date Diagnosis (ICD Code) Assessment Notes Treatment Notes Treatment Clinical Notes Section Notes 07/25/2024 Other hammer toe(s) (acquired), right foot [...] educated regarding both OTC and prescription treatments. 07/25/2024 Other hammer toe(s) (acquired), left foot (ICD-10 - M20.42) 07/25/2024 Pain in right toe(s) (ICD-10 - M79.674) 07/25/2024 Pain in left toe(s) (ICD-10 - M79.675) 07/25/2024 Unspecified atherosclerosis of [place] arteries of extremities, bilateral legs (ICD-10 - [...] and no infection or drainage was noted. 07/25/2024 Atherosclerosis of [place] arteries of extremities with intermittent claudication, bilateral legs (ICD-10 - I70.213) 07/25/2024 Congenital pes cavus, right foot (ICD-10 [...] OTC and prescription treatments. Unspecified atherosclerosis of [place] arteries of extremities, bilateral legs Patient educated [...] Reason: Provider Name:NICK IRIZARRY, 02/27/2025 02:20:00 PM, [address], [place], [phone], Progress Notes * NAVDEEP RASMUSSEN ADOB: [birth year] (79 yo F)Acc No.[id number]:07/25/2024 Patient: NAVDEEP DELACRUZ Provider: Maria Del Carmen HIDALGO :1945 A ge:79 Y S ex:Female Date:07/25/2024 Address:[address] [place], [place] [id number] Subjective: * Chief Complaints: * 1 . [...] Date last seen by Dr. Briggs was 02/2024., Initials [facility]ca. * ROS: G eneral / Constitutional: Patient denies w eakness. R espiratory: Patient denies c hronic cough, shortness of breath, sputum production. C ardiovascular: Patient denies c hest pain, history of [place], irregular heartbeat. M usculoskeletal: Patient complains of [...] Medicationnabumetone 500 MG Oral Tablet *Reorder from [employer] for eRx and Interaction Alerts* Objective: * [...] M79.675 6 . U nspecified atherosclerosis of [place] arteries of extremities, bilateral legs - I70.203 7 . A cquired keratosis [keratoderma] palmaris et plantaris - L85.1 8 . A therosclerosis of [place] arteries of extremities with intermittent claudication, bilateral [...] were emphasized. 3. U nspecified atherosclerosis of [place] arteries of extremities, bilateral legs Notes: Patient [...] LESIONS, 2 TO 4, Modifiers: Q8 , 41759 DEBRIDE NAIL, 6 OR MORE, Modifiers: 59 , Q8 * Follow Up: 3 Months * Billing Information: * Visit Code: * Procedure Codes: 25896 TRIM SKIN LESIONS, 2 TO 4. Modifiers: Q8 63498 DEBRIDE NAIL, 6 OR MORE. Modifiers: 59, Q8 * Sign off status: Completed true * Provider: Maria Del Carmen HIDALGO Date: 0 07/25/2024 Generated for Babs jones/Amanda on: 0 02/10/2025 01:09 PM CDT History and Physical Notes * [...] Date last seen by Dr. Briggs was 02/2024., Initials [facility]ca Examination Category Sub-Category Detail Notes [...]
== END 2025-02-10 11:30 | disposition home or self-care (01) ==
LOC: CHSIMG 11:33
PROVIDERS: PCP Internal Medicine; Visit Provider Orthopaedic Surgery
DX: M25.561 Pain in right knee (principal); M17.12 Unilateral primary osteoarthritis, left knee
CPT/HCPCS: 73564

== ENCOUNTER 2025-04-11 12:58 | Outpatient (CLI) | payer MEDICARE, SELFPAY ==
--- OUTSIDE RECORDS SUMMARY | 2025-04-11 13:03 | XMS_ITS | Patient Health Record ---
Author Organization [facility] Address [address] [place], [place] [id number] Care Team Providers Care Deicer Repairer Name Role Phone NICK MORRELL Unavailable [phone] Inocencio Briggs Unavailable Unavailable RAIN MASSEY Unavailable [phone] EREN HIDALGO Unavailable [phone] Allergies No Known Allergies Reason For Referral No Information Medications Medication SIG (Take, Route, Frequency, Duration) Notes Start Date End Date Status Nabumetone 500 MG Oral Tablet ORAL nabumetone 500 MG Oral TabletOriginal Medicationnabumetone 500 MG Oral Tablet *Reorder from [employer] for eRx and Interaction Alerts* 08/08/2014 Active Immunizations Vaccine Route Administration Date Status Comme nts Influenza, high dose seasonal Unknown 08/10/2023 Admini stered Vital Signs Height-cm 167.64 cm 02/27/2025 Weight-kg 71.67 kg 02/27/2025 Height 66.00 in 02/27/2025 Weight 158 lbs 02/27/2025 BMI 25.5 kg/m2 02/27/2025 Encounters Encounter Location Date Provider Diagnosis [address] [id number] 05/23/2024 EREN HIDALGO Other hammer toe(s) (acquired), right foot M20.41 ; Tinea unguium B35.1 ; Other hammer toe(s) (acquired), left foot M20.42 ; Pain in right toe(s) M79.674 ; Pain in left toe(s) M79.675 ; Unspecified atherosclerosis of hughes arteries of extremities, bilateral legs I70.203 ; Acquired keratosis [keratoderma] palmaris et plantaris L85.1 ; Atherosclerosis of hughes arteries of extremities with intermittent claudication, bilateral legs I70.213 ; Congenital pes cavus, 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 and Congenital pes cavus, left foot Q66.[address] [id number] 07/25/2024 EREN HIDALGO Other hammer toe(s) (acquired), right foot M20.41 ; Tinea unguium B35.1 ; Other hammer toe(s) (acquired), left foot M20.42 ; Pain in right toe(s) M79.674 ; Pain in left toe(s) M79.675 ; Unspecified atherosclerosis of hughes arteries of extremities, bilateral legs I70.203 ; Acquired keratosis [keratoderma] palmaris et plantaris L85.1 ; Atherosclerosis of hughes arteries of extremities with intermittent claudication, bilateral legs I70.213 ; Congenital pes cavus, 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 and Congenital pes cavus, left foot Q66.72 [place] [address] [address] [place], [place] [id number] 10/03/2024 EREN HIDALGO Other hammer toe(s) (acquired), right foot M20.41 ; Tinea unguium B35.1 ; Other hammer toe(s) (acquired), left foot M20.42 ; Pain in right toe(s) M79.674 ; Pain in left toe(s) M79.675 ; Unspecified atherosclerosis of hughes arteries of extremities, bilateral legs I70.203 ; Acquired keratosis [keratoderma] palmaris et plantaris L85.1 ; Atherosclerosis of hughes arteries of extremities with intermittent claudication, bilateral legs I70.213 ; Congenital pes cavus, 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 and Congenital pes cavus, left foot Q66.[address] [id number] 12/05/2024 RAIN MASSEY Tinea unguium B35.1 ; Pain in left foot M79.672 ; Pain in right foot M79.671 ; Atherosclerosis of hughes arteries of extremities with intermittent claudication, bilateral legs I70.213 and Acquired keratosis [keratoderma] palmaris et plantaris L85.[address] [id number] 02/27/2025 RAIN MASSEY Tinea unguium B35.1 ; Pain in left foot M79.672 ; Pain in right foot M79.671 ; Atherosclerosis of hughes arteries of extremities with intermittent claudication, bilateral legs I70.213 and Acquired keratosis [keratoderma] palmaris et plantaris L85.1 Assessments Encounter Date Diagnosis (ICD Code) Assessment Notes Treatment Notes Treatment Clinical Notes Section Notes 05/23/2024 Tinea unguium (ICD-10 - B35.1) Aseptic [...] Pain in left foot (ICD-10 - M79.672) 02/27/2025 Tinea unguium (ICD-10 - B35.1) Nails 1-5 Bilateral were debrided extensively with nail nippers and emery board, reducing length and girth to pink healthy tissue with any subungual debris and necrotic tissue removed 02/27/2025 Pain in left foot (ICD-10 - M79.672) 12/05/2024 Pain in right foot (ICD-10 - M79.671) 02/27/2025 Pain in right foot (ICD-10 - M79.671) 10/03/2024 Other hammer toe(s) (acquired), left foot (ICD-10 - M20.42) 07/25/2024 Other hammer toe(s) (acquired), left foot (ICD-10 - M20.42) 05/23/2024 Other hammer toe(s) (acquired), left foot (ICD-10 - M20.42) 05/23/2024 Pain in right toe(s) (ICD-10 - M79.674) 07/25/2024 Pain in right toe(s) (ICD-10 - M79.674) 10/03/2024 Pain in right toe(s) (ICD-10 - M79.674) 02/27/2025 Atherosclerosis of hughes arteries of extremities with intermittent claudication, bilateral legs (ICD-10 - I70.213) 12/05/2024 Atherosclerosis of hughes arteries of extremities with intermittent claudication, bilateral legs (ICD-10 - I70.213) 12/05/2024 Acquired keratosis [keratoderma] palmaris et plantaris (ICD-10 - L85.1) A total of 2 corns or calluses, as described in the note above, were cut and pared utilizing a #15 blade 02/27/2025 Acquired keratosis [keratoderma] palmaris et plantaris (ICD-10 - L85.1) A total of 2 corns or calluses, as described in the note above, were cut and pared utilizing a #15 blade 10/03/2024 Pain in left toe(s) (ICD-10 - M79.675) 07/25/2024 Pain in left toe(s) (ICD-10 - M79.675) 05/23/2024 Pain in left toe(s) (ICD-10 - M79.675) 05/23/2024 Unspecified atherosclerosis of hughes arteries of extremities, bilateral legs (ICD-10 - I70.203) Patient educated on risks and aggravating factors of PVD, including conservative treatment options such as a diet and exercise regimen to aid in slowing progression of vascular disease 10/03/2024 Unspecified atherosclerosis of hughes arteries of extremities, bilateral legs (ICD-10 - I70.203) Patient educated on risks and aggravating factors of PVD, including conservative treatment options such as a diet and exercise regimen to aid in slowing progression of vascular disease 07/25/2024 Unspecified atherosclerosis of hughes arteries of extremities, bilateral legs (ICD-10 - [...] no infection or drainage was noted. 05/23/2024 Atherosclerosis of hughes arteries of extremities with intermittent claudication, bilateral legs (ICD-10 - I70.213) 07/25/2024 Atherosclerosis of hughes arteries of extremities with intermittent claudication, bilateral legs (ICD-10 - I70.213) 10/03/2024 Atherosclerosis of hughes arteries of extremities with intermittent claudication, bilateral [...] Treatment Next Appt Details Provider Name:NICK IRIZARRY, 05/01/2025 02:30:00 PM, [address] [place] [address], [id number], Insurance Providers Payer Name Payer Address Payer Phone Subscriber Number Group Number Insured Name Patient Relationship to Insured Coverage Start Date Coverage End Date Medicare Part B [place] [address] [facility] [place] [phone] [id number] NAVDEEP RASMUSSEN Self - patient is the insured [facility] [address] [address] [facility] [place] [address] [phone] [id number] NAVDEEP RASMUSSEN Self - patient is the insured
[2025-04-11 13:18] VITALS: BMI 26.6
[2025-04-11 13:24] VITALS: BP 130/75; PULSE 76; RESP 14; O2SAT 98
[2025-04-11 13:33] LABS: Calcium 9.1 mg/dL (8.4-10.2)
[2025-04-11] MEDS: DENOSUMAB 60 MG/ML SYRINGE SUB-Q (13:39)
[2025-04-14 16:40] LABS: Albumin Level 3.9 g/dL (3.5-5.1)
== END 2025-04-11 12:59 | disposition home or self-care (01) ==
PROVIDERS: PCP Internal Medicine; Visit Provider Obstetrics & Gynecology
DX: M81.0 Age-related osteoporosis without current pathological fracture (principal); Z92.29 Personal history of other drug therapy
CPT/HCPCS: 36415; 82040; 82310; 96372; J0897

== ENCOUNTER 2025-06-13 08:56 | Outpatient (CLI) | payer MEDICARE, SELFPAY ==
--- OUTSIDE RECORDS SUMMARY | 2025-06-13 09:04 | XMS_ITS | Patient Health Record ---
Author Organization [facility] Address [address] [place], [place] [address] Care Team Providers Care Early Childhood Lead Teacher Name Role Phone PETROS NICK Unavailable [phone] Inocencio Briggs Unavailable Unavailable RAIN MASSEY Unavailable [phone] EREN HIDALGO Unavailable [phone] Allergies No Known Allergies Reason For Referral No Information Medications Medication SIG (Take, Route, Frequency, Duration) Notes Start Date End Date Status Nabumetone 500 MG Oral Tablet ORAL nabumetone 500 MG Oral TabletOriginal Medicationnabumetone 500 MG Oral Tablet *Reorder from [employer] for eRx and Interaction Alerts* 08/08/2014 Active Immunizations Vaccine Route Administration Date Status Comme nts Influenza, high dose seasonal Unknown 08/10/2023 Admini stered Vital Signs Height-cm 167.64 cm 05/01/2025 Weight-kg 71.67 kg 05/01/2025 Height 66.00 in 05/01/2025 Weight 158 lbs 05/01/2025 BMI 25.5 kg/m2 05/01/2025 Encounters Encounter Location Date Provider Diagnosis [address] [id number] 05/01/2025 NICK MORRELL Tinea unguium B35.1 ; Pain in left foot M79.672 ; Pain in right foot M79.671 ; Atherosclerosis of [place] arteries of extremities with intermittent claudication, bilateral legs I70.213 and Acquired keratosis [keratoderma] palmaris et plantaris L85.1 [address] [id number] 07/25/2024 EREN HIDALGO Other hammer toe(s) (acquired), right foot M20.41 ; Tinea unguium B35.1 ; Other hammer toe(s) (acquired), left foot M20.42 ; Pain in right toe(s) M79.674 ; Pain in left toe(s) M79.675 ; Unspecified atherosclerosis of [place] arteries of extremities, bilateral legs I70.203 ; Acquired keratosis [keratoderma] palmaris et plantaris L85.1 ; Atherosclerosis of [place] arteries of extremities with intermittent claudication, bilateral legs I70.213 ; Congenital pes cavus, 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 and Congenital pes cavus, left foot Q66.[address] [id number] 10/03/2024 EREN HIDALGO Other hammer toe(s) (acquired), right foot M20.41 ; Tinea unguium B35.1 ; Other hammer toe(s) (acquired), left foot M20.42 ; Pain in right toe(s) M79.674 ; Pain in left toe(s) M79.675 ; Unspecified atherosclerosis of [place] arteries of extremities, bilateral legs I70.203 ; Acquired keratosis [keratoderma] palmaris et plantaris L85.1 ; Atherosclerosis of [place] arteries of extremities with intermittent claudication, bilateral legs I70.213 ; Congenital pes cavus, 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 and Congenital pes cavus, left foot Q66.[address] [id number] 12/05/2024 RAIN SNOOK Tinea unguium B35.1 ; Pain in left foot M79.672 ; Pain in right foot M79.671 ; Atherosclerosis of [place] arteries of extremities with intermittent claudication, bilateral legs I70.213 and 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671) 12/05/2024 Pain in right foot (ICD-10 - M79.671) 02/27/2025 Pain in right foot (ICD-10 - M79.671) 10/03/2024 Other hammer toe(s) (acquired), left foot (ICD-10 - M20.42) 07/25/2024 Other hammer toe(s) (acquired), left foot (ICD-10 - M20.42) 07/25/2024 Pain in right toe(s) (ICD-10 - M79.674) 10/03/2024 Pain in right toe(s) (ICD-10 - M79.674) 02/27/2025 Atherosclerosis of [place] arteries of extremities with intermittent claudication, bilateral legs (ICD-10 - I70.213) 12/05/2024 Atherosclerosis of [place] arteries of extremities with intermittent claudication, bilateral legs (ICD-10 - I70.213) 05/01/2025 Atherosclerosis of [place] arteries of extremities with intermittent claudication, bilateral legs (ICD-10 - I70.213) 05/01/2025 Acquired keratosis [keratoderma] palmaris et plantaris (ICD-10 - L85.1) A total of 2 corns or calluses, as described in the note above, were cut and pared utilizing a #15 blade 12/05/2024 Acquired keratosis [keratoderma] palmaris et plantaris [...] (ICD-10 - M79.675) 10/03/2024 Unspecified atherosclerosis of [place] arteries of extremities, bilateral legs (ICD-10 - I70.203) Patient educated on risks and aggravating factors of PVD, including conservative treatment options such as a diet and exercise regimen to aid in slowing progression of vascular disease 07/25/2024 Unspecified atherosclerosis of [place] arteries of extremities, bilateral legs (ICD-10 - [...] or drainage was noted. 07/25/2024 Atherosclerosis of [place] arteries of extremities with intermittent claudication, bilateral legs (ICD-10 - I70.213) 10/03/2024 Atherosclerosis of [place] arteries of extremities with intermittent claudication, bilateral legs (ICD-10 - I70.213) 10/03/2024 Congenital pes cavus, right foot (ICD-10 - Q66.71) 07/25/2024 Congenital pes cavus, right foot (ICD-10 - Q66.71) 07/25/2024 Congenital pes cavus, left foot (ICD-10 - Q66.72) 10/03/2024 Congenital pes cavus, left foot (ICD-10 - Q66.72) Plan Of Treatment Next Appt Details Provider Name:NICK IRIZARRY, 07/03/2025 02:10:00 PM, [address] [place] [address], [id number], Insurance Providers Payer Name Payer Address Payer Phone Subscriber Number Group Number Insured Name Patient Relationship to Insured Coverage Start Date Coverage End Date Medicare Part B [place] [address] [place] [phone] [id number] NAVDEEP RASMUSSEN Self - patient is the insured [facility] [address] [address] [place] [address] [id number] ANVDEEP RASMUSSEN Self - patient is the insured
--- OUTSIDE RECORDS SUMMARY | 2025-06-13 09:04 | XMS_ITS ---
Author Organization [facility] Address [address] [place], [place] [address] Care Team Providers Care Supervisor Counseling And Guidance Name Role Phone PETROS NICK Unavailable [phone] Inocencio Briggs Unavailable Unavailable Allergies No Known Allergies REASON FOR VISIT *General care Medications Medication SIG (Take, Route, Frequency, Duration) Notes Start Date End Date Status Nabumetone 500 MG Oral Tablet ORAL nabumetone 500 MG Oral TabletOriginal Medicationnabumetone 500 MG Oral Tablet *Reorder from [employer] for eRx and Interaction Alerts* 08/08/2014 Active Vital Signs Height 66.00 in 05/01/2025 Weight 158 lbs 05/01/2025 BMI 25.5 kg/m2 05/01/2025 Height-cm 167.64 cm 05/01/2025 Weight-kg 71.67 kg 05/01/2025 Encounters Encounter Location Date Provider Diagnosis [address] [id number] 05/01/2025 NICK MORRELL Tinea unguium B35.1 ; Pain in left foot M79.672 ; Pain in right foot M79.671 ; Atherosclerosis of [place] arteries of extremities with intermittent claudication, bilateral [...] foot (ICD-10 - M79.671) 05/01/2025 Atherosclerosis of [place] arteries of extremities with intermittent claudication, bilateral [...] sooner if problems develop. Provider Name:NICK IRIZARRY, 07/03/2025 02:10:00 PM, [address] [place] [address], [id number], Progress Notes * NAVDEEP RASMUSSEN ADOB: [birth year] (79 yo F)Acc No.[id number]:05/01/2025 Patient: NAVDEEP DELACRUZ A Provider: Colt MORRELL :1945 A ge:79 Y S ex:Female Date:05/01/2025 Address:[address] [place] [address], second address, [id number] Subjective: * Chief Complaints: * 1 . [...] Patient denies c hest pain, history of [place], irregular heartbeat. M usculoskeletal: Patient complains of [...] Medicationnabumetone 500 MG Oral Tablet *Reorder from [employer] for eRx and Interaction Alerts*, Medication List [...] - M79.671 4 . A therosclerosis of [place] arteries of extremities with intermittent claudication, bilateral [...] LESIONS, 2 TO 4, Modifiers: Q8 , 08416 DEBRIDE NAIL, 6 OR MORE, Modifiers: 59 , Q8 * Follow Up: 1 0 - 12 weeks (Reason: At-Risk Foot care, sooner if problems develop.) * Billing Information: * Visit Code: * Procedure Codes: 22767 TRIM SKIN LESIONS, 2 TO 4. Modifiers: Q8 34274 DEBRIDE NAIL, 6 OR MORE. Modifiers: 59, Q8 * Electronic signature of ZAKIA MORRELL DPM on 06/13/2025 at 09:03 AM CDT Sign off status: Pending * Provider: Colt MORRELL Date: 0 05/01/2025 Generated for Babs Frias/Nasreen on: 0 06/13/2025 09:03 AM CDT History and Physical Notes * [...]
[2025-06-13 09:11] LABS: Hematocrit 42.5 % (35.0-42.0); Hemoglobin 13.8 g/dL (11.7-13.8); Mean Corpuscular HGB Conc 32.5 g/dL (32-36); Mean Corpuscular Hemoglobin 31.3 pg (27.0-31.0); Mean Corpuscular Volume 96.4 fL (78.0-102.0); Platelet Count Result 242 K/mm3 (150-420); Red Blood Count 4.41 M/mm3 (4.20-5.40); White Blood Count 5.2 K/mm3 (4.8-10.8)
[2025-06-13 09:13] LABS: Add Urine Microscopic? YES; Appearance Urine Clear (Clear); Glucose Urine UA Negative (Negative); Leukocyte Esterase Ur Trace LEU/UL (Negative); Nitrate Urine Negative (Negative); Specific Grav Ur 1.015 (1.010-1.020)
[2025-06-13 09:49] LABS: Alanine Aminotransferase 17 U/L (6-35); Albumin Level 4.5 g/dL (3.5-5.1); Alkaline Phosphatase 66 U/L (38-126); Anion Gap 10 mmol/L (4-12); Aspartate Amino Transferase 27 U/L (14-36); Bilirubin,Total 0.7 mg/dL (0.2-1.3); Blood Urea Nitrogen 15 mg/dL (7-17); Calcium 9.5 mg/dL (8.4-10.2); Carbon Dioxide 24 mmol/L (22-30); Chloride 107 mmol/L (98-107); Cholesterol 202 mg/dL (0-200); Estimated Glomerular Filt Rate 60; Glucose 107 mg/dL (65-110); HDL Direct 48 mg/dL; Osmolality Calculated 292 mOsm/kg (285-295); Potassium 4.5 mmol/L (3.4-5.0); Sodium 141 mmol/L (137-145); Total Protein 7.0 g/dL (6.3-8.2); Triglycerides 200 mg/dL (<150)
[2025-06-13 10:18] LABS: Thyroid Stimulating Hormone 2.300 uIU/mL (0.465-4.680)
== END 2025-06-13 08:57 | disposition home or self-care (01) ==
LOC: CHSLAB 08:59
PROVIDERS: PCP Internal Medicine; Visit Provider Internal Medicine
DX: E03.9 Hypothyroidism, unspecified (principal); E78.5 Hyperlipidemia, unspecified
CPT/HCPCS: 36415; 80053; 80061; 81001; 84443; 85027

== ENCOUNTER 2025-08-19 08:22 | Outpatient (CLI) | payer MEDICARE, SELFPAY ==
--- OUTSIDE RECORDS SUMMARY | 2025-05-01 09:30 | XMS_ITS ---
Author Organization [facility] Address [address] [place], [place] [id number] Care Team Providers Care Radiological Equipment Specialist Name Role Phone PETROS NICK Unavailable [phone] Inocencio Briggs Unavailable Unavailable Allergies No Known Allergies REASON FOR VISIT *General care Medications Medication SIG (Take, Route, Frequency, Duration) Notes Start Date End Date Status Nabumetone 500 MG Oral Tablet ORAL nabumetone 500 MG Oral TabletOriginal Medicationnabumetone 500 MG Oral Tablet *Reorder from [employer] for eRx and Interaction Alerts* 08/08/2014 Active Vital Signs Height 66.00 in 05/01/2025 Weight 158 lbs 05/01/2025 BMI 25.5 kg/m2 05/01/2025 Height-cm 167.64 cm 05/01/2025 Weight-kg 71.67 kg 05/01/2025 Encounters Encounter Location Date Provider Diagnosis [address] [id number] 05/01/2025 NICK MORRELL Tinea unguium B35.1 ; Pain in left foot M79.672 ; Pain in right foot M79.671 ; Atherosclerosis of unga arteries of extremities with intermittent claudication, bilateral legs I70.213 and Acquired keratosis [keratoderma] palmaris et plantaris L85.1 Assessments Encounter Date Diagnosis (ICD Code) Assessment Notes Treatment Notes Treatment Clinical Notes Section Notes 05/01/2025 Tinea unguium (ICD-10 - B35.1) Nails 1-5 Bilateral were debrided extensively with nail nippers and emery board, reducing length and girth to pink healthy tissue with any subungual debris and necrotic tissue removed 05/01/2025 Pain in left foot (ICD-10 - M79.672) 05/01/2025 Pain in right foot (ICD-10 - M79.671) 05/01/2025 Atherosclerosis of unga arteries of extremities with intermittent claudication, bilateral legs (ICD-10 - I70.213) 05/01/2025 Acquired keratosis [keratoderma] palmaris et plantaris (ICD-10 [...] sooner if problems develop. Provider Name:NICK IRIZARRY, 09/04/2025 02:20:00 PM, [address] [place] [address], [id number], Progress Notes * NAVDEEP RASMUSSEN ADOB: [birth year] (80 yo F)Acc No.[id number]:05/01/2025 Patient: NAVDEEP DELACRUZ A Provider: Colt MORRELL :1945 A ge:79 Y S ex:Female Date:05/01/2025 Address:[address] [place] [address], second address, [id number] Subjective: * Chief Complaints: * 1 . *General care. * HPI: H PI: General care P atient presents to the office for at risk foot care. Patient states that their nails are thickened, elongated and painful. Patient states that it is aggravated by shoe gear. Onset is gradual. Patient denies being diabetic. Patient denies taking blood thinners. Date last seen by Dr. Briggs was 01/2025. Initials sea. * ROS: G eneral / Constitutional: Patient denies w eakness. R espiratory: Patient denies c hronic cough, shortness of breath, sputum production. C ardiovascular: Patient denies c hest pain, history of [place], irregular heartbeat. M usculoskeletal: Patient complains of h ammertoes. P eripheral Vascular: Patient denies b lanching of skin, cold extremities, decreased sensation in extremities. S kin: Patient complains of f ungal nails, nail changes. ? N eurologic: Patient denies d izziness, gait abnormality, headache. * Medical History: M edical History Verified. * Family History: F ather: PRN - Father: :: Stroke,,known absent . M other: PRN - Mother: :: Arthritis,,known absent . B rother: SIB - Brother: :: Arthritis,,known absent , :: Diabetes,,known absent .? * Social History: M igrated Social History: M igrated Social History: Smoking Status : Never smoked , History of tobacco use :. * Medications: T aking Nabumetone 500 MG Oral Tablet ORAL , Notes to Pharmacist: nabumetone 500 MG Oral TabletOriginal Medicationnabumetone 500 MG Oral Tablet *Reorder from [employer] for eRx and Interaction Alerts*, Medication List reviewed and reconciled with the patient * Allergies: N .K.D.A. Objective: * Vitals: W t: 158 lbs, Wt-k.67 kg, Ht: 66.00 in, Ht-cm: 167.64 cm, BMI: 25.5 Index, Body Surface Area: 1.82. * Examination: P hysical Examination: General appearance: [...] - M79.671 4 . A therosclerosis of unga arteries of extremities with intermittent claudication, bilateral [...] LESIONS, 2 TO 4, Modifiers: Q8 , 16866 DEBRIDE NAIL, 6 OR MORE, Modifiers: 59 , Q8 * Follow Up: 1 0 - 12 weeks (Reason: At-Risk Foot care, sooner if problems develop.) * Billing Information: * Visit Code: * Procedure Codes: 69029 TRIM SKIN LESIONS, 2 TO 4. Modifiers: Q8 34290 DEBRIDE NAIL, 6 OR MORE. Modifiers: 59, Q8 * Electronic signature of ZAKIA MORRELL DPM on 08/19/2025 at 08:40 AM CDT Sign off status: Pending * Provider: Colt MORRELL Date: 0 05/01/2025 Generated for Babs Frias/Nasreen on: 1 08:40 AM CDT History and Physical Notes * HPI (History of Present Illness) Category Sub-Category Detail Notes Category Not es HPI General care Patient presents to the office for at risk foot care. Patient states that their nails are thickened, elongated and painful. Patient states that it is aggravated by shoe gear. Onset is gradual. Patient denies being diabetic. Patient denies taking blood thinners. Date last seen by Dr. Briggs was 01/2025. Initials sea Examination Category Sub-Category Detail Notes Category Not [...]
--- OUTSIDE RECORDS SUMMARY | 2025-07-03 09:10 | XMS_ITS ---
Author Organization [facility] Address [address] [place], [place] [id number] Care Team Providers Care Counterintelligence Agent Name Role Phone PETROS NICK Unavailable [phone] Inocencio Briggs Unavailable Unavailable Allergies No Known Allergies REASON FOR VISIT *General care Medications Medication SIG (Take, Route, Frequency, Duration) Notes Start Date End Date Status Nabumetone 500 MG Oral Tablet ORAL nabumetone 500 MG Oral TabletOriginal Medicationnabumetone 500 MG Oral Tablet *Reorder from [facility] for eRx and Interaction Alerts* 08/08/2014 Active Vital Signs Height 66.00 in 07/03/2025 Weight 158 lbs 07/03/2025 BMI 25.5 kg/m2 07/03/2025 Height-cm 167.64 cm 07/03/2025 Weight-kg 71.67 kg 07/03/2025 Encounters Encounter Location Date Provider Diagnosis [address] [id number] 07/03/2025 NICK MORRELL Tinea unguium B35.1 ; Pain in left foot M79.672 ; Pain in right foot M79.671 ; Atherosclerosis of [place] arteries of extremities with intermittent claudication, bilateral legs I70.213 and Acquired keratosis [keratoderma] palmaris et plantaris L85.1 Assessments Encounter Date Diagnosis (ICD Code) Assessment Notes Treatment Notes Treatment Clinical Notes Section Notes 07/03/2025 Tinea unguium (ICD-10 - B35.1) Nails 1-5 Bilateral were debrided extensively with nail nippers and emery board, reducing length and girth to pink healthy tissue with any subungual debris and necrotic tissue removed 07/03/2025 Pain in left foot (ICD-10 - M79.672) 07/03/2025 Pain in right foot (ICD-10 - M79.671) 07/03/2025 Atherosclerosis of [place] arteries of extremities with intermittent claudication, bilateral legs (ICD-10 - I70.213) 07/03/2025 Acquired keratosis [keratoderma] palmaris et plantaris (ICD-10 [...] develop. Provider Name:NICK IRIZARRY, 09/04/2025 02:20:00 PM, [address] [place] [address], [id number], Progress Notes * NAVDEEP RASMUSSEN ADOB: [birth year] (80 yo F)Acc No.[id number]:07/03/2025 Patient: NAVDEEP DELACRUZ A Provider: Clot MORRELL :1945 A ge:79 Y S ex:Female Date:07/03/2025 Address:[address] [place] [address], No second address, [id number] Subjective: * Chief Complaints: * 1 . [...] Date last seen by Dr. Briggs was 04/2025., Initials nd. * ROS: G eneral / Constitutional: Patient denies w eakness. R espiratory: Patient denies c hronic cough, shortness of breath, sputum production. C ardiovascular: Patient denies c hest pain, history of [place], irregular heartbeat. M usculoskeletal: Patient complains of h ammertoes. P eripheral Vascular: Patient denies b lanching of skin, cold extremities, decreased sensation in extremities. S kin: Patient complains of f ungal nails, nail changes. ? N eurologic: Patient denies d izziness, gait abnormality, headache. * Medical History: N o Reported Medical History.Medical History Verified. * Surgical History: D enies Past Surgical History. * Hospitalization/Major Diagno stic Procedure: D enies Past Hospitalization. * Family History: F ather: PRN - [...] Medicationnabumetone 500 MG Oral Tablet *Reorder from [facility] for eRx and Interaction Alerts*, Medication List [...] - M79.671 4 . A therosclerosis of [place] arteries of extremities with intermittent claudication, bilateral [...] SKIN LESIONS, 2 TO 4, Modifiers: Q8 * Follow Up: 1 0 - 12 weeks (Reason: At-Risk Foot care, sooner if problems develop.) * Billing Information: * Visit Code: * Procedure Codes: 24725 TRIM SKIN LESIONS, 2 TO 4. Modifiers: Q8 * Electronic signature of ZAKIA MORRELL DPM on 08/19/2025 at 08:40 AM CDT Sign off status: Pending * Provider: Colt MORRELL Date: 0 07/03/2025 Generated for Babs Frias/Nasreen on: 1 08:40 [...] Date last seen by Dr. Briggs was 04/2025., Initials nd Examination Category Sub-Category Detail Notes Category Not [...]
--- NOTE | ~2025-08-19 | MM_ITS ---
EXAMINATION: MM screening ricki BI w bakari HISTORY: Screening TECHNIQUE: Craniocaudal and mediolateral oblique 3-D tomosynthesis images were obtained and synthetic 2-D images were generated. CAD analysis was submitted and interpreted. COMPARISON: Comparison to multiple prior studies sequentially, with oldest reviewed study dated 07/21/2021. BREAST PARENCHYMAL COMPOSITION: Not Dense: The breasts are almost entirely fatty. FINDINGS: There is no evidence of suspicious mass, calcification, or architectural distortion to suggest malignancy in either breast. There has been no suspicious interval change. IMPRESSION: 1. No mammographic evidence of malignancy. 2. Recommend routine screening mammography in one year. BI-RADS Category 1: Negative Reviewed, dictated and finalized at location O.
--- OUTSIDE RECORDS SUMMARY | 2025-08-19 08:41 | XMS_ITS | Patient Health Record ---
Author Organization [facility] Address [address] [place], [place] [id number] Care Team Providers Care Helicopter Crew Chief Name Role Phone PETROS NICK Unavailable [phone] Inocencio Briggs Unavailable Unavailable RAIN MASSEY Unavailable [phone] EREN HIDALGO Unavailable [phone] Allergies No Known Allergies Reason For Referral No Information Medications Medication SIG (Take, Route, Frequency, Duration) Notes Start Date End Date Status Nabumetone 500 MG Oral Tablet ORAL nabumetone 500 MG Oral TabletOriginal Medicationnabumetone 500 MG Oral Tablet *Reorder from [facility] for eRx and Interaction Alerts* 08/08/2014 Active Immunizations Vaccine Route Administration Date Status Comme nts Influenza, high dose seasonal Unknown 08/10/2023 Admini stered Vital Signs Height-cm 167.64 cm 07/03/2025 Weight-kg 71.67 kg 07/03/2025 Height 66.00 in 07/03/2025 Weight 158 lbs 07/03/2025 BMI 25.5 kg/m2 07/03/2025 Encounters Encounter Location Date Provider Diagnosis [address] [id number] 05/01/2025 NICK MORRELL Tinea unguium B35.1 ; Pain in left foot M79.672 ; Pain in right foot M79.671 ; Atherosclerosis of [place] arteries of extremities with intermittent claudication, bilateral legs I70.213 and Acquired keratosis [keratoderma] palmaris et plantaris L85.1 [address] [id number] 07/03/2025 NICK MORRELL Tinea unguium B35.1 ; Pain in left foot M79.672 ; Pain in right foot M79.671 ; Atherosclerosis of [place] arteries of extremities with intermittent claudication, bilateral legs I70.213 and Acquired keratosis [keratoderma] palmaris et plantaris L85.1 [address] [place], [place] [id number] 10/03/2024 EREN HIDALGO Other hammer toe(s) (acquired), right foot M20.41 ; Tinea unguium B35.1 ; Other hammer toe(s) (acquired), left foot M20.42 ; Pain in right toe(s) M79.674 ; Pain in left toe(s) M79.675 ; Unspecified atherosclerosis of [place] arteries of extremities, bilateral legs I70.203 ; Acquired keratosis [keratoderma] palmaris et plantaris L85.1 ; Atherosclerosis of [place] arteries of extremities with intermittent claudication, bilateral legs I70.213 ; Congenital pes cavus, 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 and Congenital pes cavus, left foot Q66.[address] [id number] 12/05/2024 RAIN SNOOK Tinea unguium B35.1 ; Pain in left foot M79.672 ; Pain in right foot M79.671 ; Atherosclerosis of [place] arteries of extremities with intermittent claudication, bilateral legs I70.213 and Acquired keratosis [keratoderma] palmaris et plantaris L85.[address] [id number] 02/27/2025 RAIN SNOOK Tinea unguium B35.1 ; Pain in left foot M79.672 ; Pain in right foot M79.671 ; Atherosclerosis of [place] arteries of extremities with intermittent claudication, bilateral legs I70.213 and Acquired keratosis [keratoderma] palmaris et plantaris L85.1 Assessments Encounter Date Diagnosis (ICD Code) Assessment Notes Treatment Notes Treatment Clinical Notes Section Notes 10/03/2024 Tinea unguium (ICD-10 - B35.1) Aseptic [...] in left foot (ICD-10 - M79.672) 07/03/2025 Tinea unguium (ICD-10 - B35.1) Nails 1-5 Bilateral were debrided extensively with nail nippers and emery board, reducing length and girth to pink healthy tissue with any subungual debris and necrotic tissue removed 07/03/2025 Pain in left foot (ICD-10 - M79.672) 12/05/2024 Pain in right foot (ICD-10 - M79.671) 02/27/2025 Pain in right foot (ICD-10 - M79.671) 05/01/2025 Pain in right foot (ICD-10 - M79.671) 07/03/2025 Pain in right foot (ICD-10 - M79.671) 10/03/2024 Other hammer toe(s) (acquired), left foot (ICD-10 - M20.42) 10/03/2024 Pain in right toe(s) (ICD-10 - M79.674) 02/27/2025 Atherosclerosis of [place] arteries of extremities with intermittent claudication, bilateral legs (ICD-10 - I70.213) 12/05/2024 Atherosclerosis of [place] arteries of extremities with intermittent claudication, bilateral legs (ICD-10 - I70.213) 07/03/2025 Atherosclerosis of [place] arteries of extremities with intermittent claudication, bilateral legs (ICD-10 - I70.213) 05/01/2025 Atherosclerosis of [place] arteries of extremities with intermittent claudication, bilateral legs (ICD-10 - I70.213) 05/01/2025 Acquired keratosis [keratoderma] palmaris et plantaris (ICD-10 - L85.1) A total of 2 corns or calluses, as described in the note above, were cut and pared utilizing a #15 blade 07/03/2025 Acquired keratosis [keratoderma] palmaris et plantaris [...] (ICD-10 - M79.675) 10/03/2024 Unspecified atherosclerosis of [place] arteries of extremities, bilateral legs (ICD-10 - [...] or drainage was noted. 10/03/2024 Atherosclerosis of [place] arteries of extremities with intermittent claudication, bilateral legs (ICD-10 - I70.213) 10/03/2024 Congenital pes cavus, right foot (ICD-10 - Q66.71) 10/03/2024 Congenital pes cavus, left foot (ICD-10 - Q66.72) Plan Of Treatment Next Appt Details Provider Name:NICK Josie IRIZARRY, 09/04/2025 02:20:00 PM, [address] [place] [address], [id number], Insurance Providers Payer Name Payer Address Payer Phone Subscriber Number Group Number Insured Name Patient Relationship to Insured Coverage Start Date Coverage End Date Medicare Part B [place] [address] [facility] [place] [address] [id number] ANVDEEP RASMUSSEN Self - patient is the insured [facility] [address] [address] [place] [address] [phone] [id number] NAVDEEP RASMUSSEN Self - patient is the insured
== END 2025-08-19 08:23 | disposition home or self-care (01) ==
PROVIDERS: PCP Internal Medicine; Visit Provider Nurse Practitioner Obstetrics & Gynecology
DX: Z12.31 Encounter for screening mammogram for malignant neoplasm of breast (principal)
CPT/HCPCS: 77063; 77067